=== PATIENT | female | born 1950 | race Caucasian/White ===

== ENCOUNTER 2020-07-20 01:29 | Outpatient (CLI) | payer MEDICARE, SELFPAY ==
[2020-07-20 18:59] LABS: SARS-CoV-2 RNA PCR Negative
== END 2020-07-20 01:30 | disposition home or self-care (01) ==
LOC: ANHCOVIDDT 01:29
PROVIDERS: PCP Family Medicine; Visit Provider Obstetrics & Gynecology
DX: Z01.812 Encounter for preprocedural laboratory examination (principal); Z20.828 Contact with and (suspected) exposure to other viral communicable diseases
CPT/HCPCS: 87635; C9803; U0003

== ENCOUNTER 2020-07-20 07:37 | Outpatient (CLI) | payer MEDICARE, SELFPAY ==
[2020-07-20 08:11] LABS: Hematocrit 41.1 % (37.0-47.0); Hemoglobin 13.7 g/dL (12.0-15.0)
--- NOTE | 2020-07-20 08:19 | ECG_ITS ---
Measurements Intervals [place] Rate: 85 P: 46 ND: 158 QRS: -3 QRSD: 99 T: 31 QT: 378 QTc: 451 Interpretive Statements SINUS RHYTHM CANNOT RULE OUT SEPTAL INFARCT, AGE INDETERMINATE ABNORMAL ECG Electronically Signed On 07-20-2020 10:17:05 RAILROAD SIGNAL TECHNICIAN by Jeff Krishnamurthy D.O.
== END 2020-07-20 07:38 | disposition home or self-care (01) ==
PROVIDERS: PCP Family Medicine; Referring Provider Anesthesiology; Visit Provider Obstetrics & Gynecology
DX: N95.0 Postmenopausal bleeding (principal); I10 Essential (primary) hypertension
CPT/HCPCS: 36415; 85014; 85018; 87635; 93005; C9803; U0003

== ENCOUNTER 2020-07-23 02:03 | Day surgery (SDC) | payer MEDICARE, SELFPAY ==
[2020-07-19 15:13] VITALS: BMI 44.1
--- NOTE | 2020-07-22 10:00 | PM.IMHP ---
H&P: HPI History of Present Illness Date/Time: 07/22/20 10:00 Chief Complaint: post lamin bleed Narrative: Suzanne Ng is a 69 year old female who is admitted for hysteroscopy dilatation curettage secondary to postmenopausal 9. She noticed a sudden gush few days prior and then it slowed risks and benefits of the procedure reviewed. Review of Systems Review of Systems: All systems reviewed & are unremarkable except as noted in HPI and below PMFSH Past Medical History Medical History GERD (gastroesophageal reflux disease) HTN (hypertension) Hyperlipemia Morbid obesity Surgical History Surgical History History of appendectomy History of breast biopsy History of cholecystectomy History of dilatation and curettage History of ear surgery History of hernia repair History of lithotripsy Family History Family History Mother Diabetes mellitus Hypertension Family history of cardiovascular disease Cerebrovascular accident Family history of cardiac disorder Family history of diabetes mellitus in first degree relative Sibling Diabetes mellitus Family history of malignant neoplasm of uterus Family history of malignant neoplasm Family history of diabetes mellitus in first degree relative Father Family history of lung cancer Other Family history of kidney disease Social History Social History Smoking status: Never smoker Second hand tobacco smoke exposure: No Alcohol intake: never Substance use: never Substance use type: does not use Gender identity (if verbalized by the patient): Female Spiritual care concerns: No Agree to blood products: Yes Meds Home Medications and Allergies Home Medications Medication Instructions Recorded Confirmed Type indapamide 2.5 mg tablet 2.5 mg PO DAILY #90 tablet 06/27/19 07/19/20 Rx lisinopril 40 mg tablet 40 mg PO DAILY #90 tablet 06/27/19 07/19/20 Rx montelukast 10 mg tablet 10 mg PO DAILY PRN #90 tablet 07/03/20 07/19/20 Rx aspirin [Aspirin Low Dose] 81 mg PO DAILY 07/19/20 07/19/20 History atorvastatin 5 mg PO QAM 07/19/20 07/19/20 History cinnamon bark [Cinnamon] 2,000 mg PO DAILY 07/19/20 07/19/20 History coenzyme Q10 [CoQ-10] 100 mg PO DAILY 07/19/20 07/19/20 History diclofenac sodium 75 mg PO DAILY 07/19/20 07/19/20 History geriatric multivitamin-min 1 tablet QAM 07/19/20 07/19/20 History [One-A-Day 50 Plus] loratadine [Claritin] 10 mg PO DAILY 07/19/20 07/19/20 History Allergies Allergy/AdvReac Type Severity Reaction Status Date / Time adhesive Allergy Severe LOCAL Verified 07/19/20 15:07 REACTION UNDER TAPE, SKIN BREAKDOWN ???SINUS MEDICATION Allergy Mild HEART Uncoded 07/19/20 15:07 IRREG FEELING Exam Const: General: no acute distress Eyes: General: appearance normal, both eyes and all related structures Neck: Neck: supple and no JVD Thyroid: thyroid normal Resp: Effort & Inspection: normal respiratory effort Auscultation: clear to auscultation bilaterally Cardio: Rate: regular rate Rhythm: regular rhythm GI: Inspection: non-distended GI Palp: Yes Soft to palpation, No Tenderness to palpation present (GI) and No Guarding due to palpation present (GI) Auscultation: normal bowel sounds : General: Yes bladder normal to palpation External Female Exam: normal external appearance Speculum Exam - Vagina: normal appearance of the vagina and vaginal bleeding Speculum Exam - Cervix: normal appearance of the cervix Bimanual exam- vagina & uterus: enlarged ( Difficult to palpate secondary to large pannus) Skin: General skin exam: no rashes or lesions noted Extrem: General: normal to inspection and no edema Psych: Mental Status: mental status grossly normal Affec
--- NOTE | 2020-07-23 07:09 | WPDHPUPDATE1 ---
History and Physical Update Update Date/Time: 07/23/20 07:09 History and Physical has been reviewed, including an updated exam of the patient. There are NO changes in the patient's condition. Risks, benefits, and alternatives have been discussed and questions answered. Patient agrees to proceed with procedure.
[2020-07-23 11:10] VITALS: BP 148/81; PULSE 108; RESP 14; TEMP 36.8; O2SAT 100
[2020-07-23] MEDS: ACETAMINOPHEN 500 MG TABLET 1000 MG PO (11:26)
[2020-07-23] MEDS: LACTATED RINGERS 1,000 ML 30 ML IV CONT (11:38)
--- NOTE | 2020-07-23 11:48 | WPDANESEPPF ---
Anes - Initial Pre Proc Eval Procedure: Operation Date: 07/23/20 13:00 Proposed Procedures p Hysteroscopy, Dilation and Curettage - Jostin Pichardo MD Date/Time: 07/23/20 11:48 Surgeon: Jostin Pichardo MD Pre Op Diagnosis: post menopausal bleeding Patient Data Age: 69 Gender: F Height: 1.65 m Weight: 118.3 kg Last Vital Signs Temp 36.8 C 07/23/20 11:10 Pulse 108 H 07/23/20 11:10 Resp 14 07/23/20 11:10 BP 148/81 H 07/23/20 11:10 Pulse Ox 100 07/23/20 11:10 Allergies Allergy/AdvReac Type Severity Reaction Status Date / Time adhesive Allergy Severe LOCAL Verified 07/23/20 11:15 REACTION UNDER TAPE, SKIN BREAKDOWN Home Medications Medication Instructions Recorded Confirmed Type indapamide 2.5 mg tablet 2.5 mg PO DAILY #90 tablet 06/27/19 07/23/20 Rx lisinopril 40 mg tablet 40 mg PO DAILY #90 tablet 06/27/19 07/23/20 Rx montelukast 10 mg tablet 10 mg PO DAILY PRN #90 tablet 07/03/20 07/23/20 Rx aspirin [Aspirin Low Dose] 81 mg PO DAILY 07/19/20 07/23/20 History atorvastatin 5 mg PO QAM 07/19/20 07/23/20 History cinnamon bark [Cinnamon] 2,000 mg PO DAILY 07/19/20 07/23/20 History coenzyme Q10 [CoQ-10] 100 mg PO DAILY 07/19/20 07/23/20 History diclofenac sodium 75 mg PO DAILY 07/19/20 07/23/20 History geriatric multivitamin-min 1 tablet QAM 07/19/20 07/23/20 History [One-A-Day 50 Plus] loratadine [Claritin] 10 mg PO DAILY 07/19/20 07/23/20 History hydrocodone-acetaminophen [[place]] 1 tablet PO Q4H PRN #14 tablet 07/23/20 Rx ECG: Date of Service: 07/20/20 Procedure(s): CA 12 lead EKG Accession Number(s): [id number] cc: ~ Measurements Intervals [place] Rate: 85 P: 46 HI: 158 QRS: -3 QRSD: 99 T: 31 QT: 378 QTc: 451 Interpretive Statements SINUS RHYTHM CANNOT RULE OUT SEPTAL INFARCT, AGE INDETERMINATE ABNORMAL ECG Electronically Signed On 07-20-2020 10:17:05 SEO ASSOCIATE by Jeff Krishnamurthy D.O. Dictated By: Jeff Krishnamurthy DO 07/20/20 0824 Patient hx anesthesia problems: none Family hx anesthesia problems: none PMFSH Past Medical History Medical History GERD (gastroesophageal reflux disease) HTN (hypertension) Hyperlipemia Morbid obesity Surgical History Surgical History History of appendectomy History of breast biopsy History of cholecystectomy History of dilatation and curettage History of ear surgery History of hernia repair History of lithotripsy Family History Family History Mother Diabetes mellitus Hypertension Family history of cardiovascular disease Cerebrovascular accident Family history of cardiac disorder Family history of diabetes mellitus in first degree relative Sibling Diabetes mellitus Family history of malignant neoplasm of uterus Family history of malignant neoplasm Family history of diabetes mellitus in first degree relative Father Family history of lung cancer Other Family history of kidney disease Social History Social History Smoking status: Never smoker Second hand tobacco smoke exposure: No Alcohol intake: never Substance use: never Substance use type: does not use Living arrangements: with family Gender identity (if verbalized by the patient): Female Spiritual care concerns: No Agree to blood products: Yes Anes - Eval Final PreProcedure Day of Procedure 07/23/20 11:48 Patient weight: obese Heart: regular rate and rhythm Lungs: clear to auscultation and shmuel
--- NOTE | 2020-07-23 13:25 | PM.PROC ---
Procedure Note - Detailed Date of procedure: 07/23/20 Pre-op diagnosis: post menopausal bleeding Surgeon: Jostin Pichardo MD Postop diagnosis: Postmenopausal bleeding Procedure: Hysteroscopy/dilatation and curettage Anesthesia: IV sedation local Complications: None EBL: 5cc Findings: Uterus sounded to 10cm. Clots were seen inside the uterus but no definitive pathology seen. Each fallopian tube os could be seen. Description of procedure: The patient was prepped and draped in the normal sterile fashion placed in the dorsal lithotomy position. Under excellent IV sedation weighted speculum was placed in posterior fornix of vagina. Anterior lip of cervix grasped with a single-tooth tenaculum. 2.5cc of 1% xylocaine anesthesia placed at 2, 4, 8, 10:00 a.m. of the cervix. Uterus sounded to 10cm. Serial dilatation with fragmented dilators performed. This was followed by passage of the 5mm visualizing hysteroscope using normal saline as visualizing medium. Clots and blood were seen in the uterus but no evidence of abnormality. The uterus was scraped over the entire 360? until a good grating sound was heard. The hysteroscope was reinserted and benign appearance of the endometrium was looked at again. Blood loss was estimated at 5cc. All sponge, needle, instrument counts were correct. There were no immediate complications
[2020-07-23 13:28] VITALS: BP 98/60; PULSE 83; RESP 14; O2SAT 96
[2020-07-23 13:55] VITALS: BP 99/52; PULSE 81; RESP 14
[2020-07-23 14:25] VITALS: BP 116/63; PULSE 79; RESP 14
== END 2020-07-23 14:55 | disposition home or self-care (01) ==
PROVIDERS: PCP Family Medicine; Visit Provider Obstetrics & Gynecology
PROC: 0U5B8ZZ Destruction of Endometrium, Via Natural or Artificial Opening Endoscopic (ICD-10-PCS; CPT 58563; principal; 2020-07-23 13:00)
DX: N95.0 Postmenopausal bleeding (principal); N85.8 Other specified noninflammatory disorders of uterus; I10 Essential (primary) hypertension; E78.5 Hyperlipidemia, unspecified; K21.9 Gastro-esophageal reflux disease without esophagitis; E66.01 Morbid (severe) obesity due to excess calories; Z68.41 Body mass index [BMI] 40.0-44.9, adult
CPT/HCPCS: 58558; 88305; A9270; J1100; J1885; J2250; J2405; J2704; J3010; J7030; J7120

== ENCOUNTER 2020-08-08 09:26 | Outpatient (CLI) | payer MEDICARE, SELFPAY ==
[2020-08-08 09:59] LABS: Basophils Percent Auto 0.4 % (0.2-1.2); Eosinophils Absolute Auto 0.3 K/mm3 (0-0.3); Eosinophils Percent Auto 2.7 % (0-4.4); Hematocrit 40.4 % (37.0-47.0); Hemoglobin 13.6 g/dL (12.0-15.0); Immature Granulocyte Absolute 0.05 K/mm3 (0.00-0.031); Immature Granulocyte Percent A 0.5 % (0-0.5); Lymphocytes Absolute Auto 2.56 K/mm3 (0.9-3.2); Lymphocytes Percent Auto 24.1 % (18.3-44.2); Mean Corpuscular HGB Conc 33.7 g/dl (32-36); Mean Corpuscular Hemoglobin 31.9 pg (26-34); Mean Corpuscular Volume 94.6 fl (80-100); Mean Platelet Volume 9.1 fl (7.4-10.4); Monocytes Absolute Auto 0.7 K/mm3 (0.1-0.6); Monocytes Percent Auto 6.2 % (2.6-8.5); Neutrophils Percent Auto 66.1 % (45.5-73.1); Platelet Count Result 385 k/mm3 (150-375); Red Blood Count 4.27 M/mm3 (4.2-5.4); Red Cell Distribution Width 12.7 % (11.5-14.5); White Blood Count 10.6 K/mm3 (4.5-10.0)
[2020-08-08 10:12] LABS: Anion Gap 6 mmol/L (8-16); Blood Urea Nitrogen 18 mg/dL (7-17); Calcium 9.3 mg/dL (8.4-10.2); Carbon Dioxide 32 mmol/L (22-30); Chloride 101 mmol/L (98-107); Estimated Glomerular Filt Rate > 60; Glucose 123 mg/dL (65-105); Potassium 3.5 mmol/L (3.4-5.0); Sodium 139 mmol/L (137-145)
== END 2020-08-08 09:27 | disposition home or self-care (01) ==
PROVIDERS: Anesthesiology; PCP Physician Assistant; Visit Provider Obstetrics & Gynecology
DX: N95.0 Postmenopausal bleeding (principal); Z79.899 Other long term (current) drug therapy
CPT/HCPCS: 36415; 80048; 85025; 86850; 86900; 86901

== ENCOUNTER 2020-08-13 03:12 | Outpatient (CLI) | payer MEDICARE, SELFPAY ==
[2020-08-13 19:22] LABS: SARS-CoV-2 RNA PCR Negative
== END 2020-08-13 03:13 | disposition home or self-care (01) ==
LOC: ANHCOVIDDT 03:13
PROVIDERS: PCP Physician Assistant; Visit Provider Obstetrics & Gynecology
DX: Z01.812 Encounter for preprocedural laboratory examination (principal); Z20.822 Contact with and (suspected) exposure to COVID-19
CPT/HCPCS: C9803; U0003; U0005

== ENCOUNTER 2020-08-16 02:08 | Day surgery (SDC) | payer MEDICARE, SELFPAY ==
[2020-08-07 11:46] VITALS: BMI 44.0
--- NOTE | 2020-08-14 08:04 | PM.IMHP ---
H&P: HPI History of Present Illness Date/Time: 08/14/20 08:04 Chief Complaint: pmb Narrative: Suzanne Ng is a 69 year old female Is admitted for robotic total vaginal hysterectomy and bilateral salpingo-oophorectomy secondary to postmenopausal bleeding and enlarged uterus. She underwent D&C which showed benign findings. Order with her continued bleeding she opts for hysterectomy. Risks Review of Systems Review of Systems: All systems reviewed & are unremarkable except as noted in HPI and below PMFSH Past Medical History Medical History GERD (gastroesophageal reflux disease) HTN (hypertension) Hyperlipemia Morbid obesity Surgical History Surgical History History of appendectomy History of breast biopsy History of cholecystectomy History of dilatation and curettage History of ear surgery History of hernia repair History of lithotripsy Family History Family History Mother Diabetes mellitus Hypertension Family history of cardiovascular disease Cerebrovascular accident Family history of cardiac disorder Family history of diabetes mellitus in first degree relative Sibling Diabetes mellitus Family history of malignant neoplasm of uterus Family history of malignant neoplasm Family history of diabetes mellitus in first degree relative Father Family history of lung cancer Other Family history of kidney disease Social History Social History Smoking status: Never smoker Second hand tobacco smoke exposure: No Alcohol intake: never Substance use: never Substance use type: does not use Additional living arrangements comments: Gender identity (if verbalized by the patient): Female Spiritual care concerns: No Agree to blood products: Yes Meds Home Medications and Allergies Home Medications Medication Instructions Recorded Confirmed Type indapamide 2.5 mg tablet 2.5 mg PO DAILY #90 tablet 06/27/19 08/07/20 Rx lisinopril 40 mg tablet 40 mg PO DAILY #90 tablet 06/27/19 08/07/20 Rx montelukast 10 mg tablet 10 mg PO DAILY PRN #90 tablet 07/03/20 08/07/20 Rx aspirin [Aspirin Low Dose] 81 mg PO DAILY 07/19/20 08/07/20 History atorvastatin 5 mg PO QAM 07/19/20 08/07/20 History cinnamon bark [Cinnamon] 2,000 mg PO DAILY 07/19/20 08/07/20 History coenzyme Q10 [CoQ-10] 200 mg PO DAILY 07/19/20 08/07/20 History diclofenac sodium 75 mg PO DAILY 07/19/20 08/07/20 History geriatric multivitamin-min 1 tablet PO QAM 07/19/20 08/07/20 History [One-A-Day 50 Plus] loratadine [Claritin] 10 mg PO DAILY 07/19/20 08/07/20 History hydrocodone-acetaminophen [[place]] 1 tablet PO Q4H PRN #14 tablet 07/23/20 08/07/20 Rx Allergies Allergy/AdvReac Type Severity Reaction Status Date / Time adhesive AdvReac Severe LOCAL Verified 08/07/20 11:41 REACTION UNDER TAPE, SKIN BREAKDOWN Exam Const: General: no acute distress Eyes: General: appearance normal, both eyes and all related structures Neck: Neck: supple and no JVD Thyroid: thyroid normal Resp: Effort & Inspection: normal respiratory effort Auscultation: clear to auscultation bilaterally Cardio: Rate: regular rate Rhythm: regular rhythm GI: Inspection: non-distended GI Palp: Yes Soft to palpation, No Tenderness to palpation present (GI) and No Guarding due to palpation present (GI) Auscultation: normal bowel sounds : Speculum Exam - Vagina: normal appearance of the vagina Speculum Exam - Cervix: normal appearance of the cervix Bimanual exam- vagina & uterus: enlarged Skin: General skin exam: no rashes or lesions noted Extrem: General: normal to inspection and no edema Psych: Mental Status: mental status grossly normal Affect: normal affect Assessment and Plan Additional Pl
[2020-08-16] VITALS (16 sets, daily range): BP systolic 87–130; BP diastolic 40–68; PULSE 54–96; RESP 12–20; TEMP 36.3–37.4; O2SAT 94–100
[2020-08-16] MEDS: LACTATED RINGERS 1,000 ML 30 ML IV CONT ×2 (06:40→08:46)
--- NOTE | 2020-08-16 06:44 | WPDHPUPDATE1 ---
History and Physical Update Update Date/Time: 08/16/20 06:44 History and Physical has been reviewed, including an updated exam of the patient. There are NO changes in the patient's condition. Risks, benefits, and alternatives have been discussed and questions answered. Patient agrees to proceed with procedure.
--- NOTE | 2020-08-16 06:51 | WPDANESEPPF ---
Anes - Initial Pre Proc Eval Procedure: Operation Date: 08/16/20 07:30 Proposed Procedures p Robotic Assisted Total Vaginal Hysterectomy With Bilateral Salpingo-Oophorectomy - Jostin Pichardo MD Date/Time: 08/16/20 06:51 Surgeon: Jostin Pichardo MD Pre Op Diagnosis: Post Menopausal Bleeding, Patient Data Age: 69 Gender: F Height: 5 ft 5 in Weight: 120 kg Allergies Allergy/AdvReac Type Severity Reaction Status Date / Time adhesive AdvReac Severe LOCAL Verified 08/07/20 11:41 REACTION UNDER TAPE, SKIN BREAKDOWN Home Medications Medication Instructions Recorded Confirmed Type indapamide 2.5 mg tablet 2.5 mg PO DAILY #90 tablet 06/27/19 08/07/20 Rx lisinopril 40 mg tablet 40 mg PO DAILY #90 tablet 06/27/19 08/07/20 Rx montelukast 10 mg tablet 10 mg PO DAILY PRN #90 tablet 07/03/20 08/07/20 Rx aspirin [Aspirin Low Dose] 81 mg PO DAILY 07/19/20 08/07/20 History atorvastatin 5 mg PO QAM 07/19/20 08/07/20 History cinnamon bark [Cinnamon] 2,000 mg PO DAILY 07/19/20 08/07/20 History coenzyme Q10 [CoQ-10] 200 mg PO DAILY 07/19/20 08/07/20 History diclofenac sodium 75 mg PO DAILY 07/19/20 08/07/20 History geriatric multivitamin-min 1 tablet PO QAM 07/19/20 08/07/20 History [One-A-Day 50 Plus] loratadine [Claritin] 10 mg PO DAILY 07/19/20 08/07/20 History hydrocodone-acetaminophen [[place]] 1 tablet PO Q4H PRN #14 tablet 07/23/20 08/07/20 Rx hydrocodone-acetaminophen [[place]] 1 tablet PO Q4H PRN #30 tablet 08/16/20 Rx Patient hx anesthesia problems: none Family hx anesthesia problems: none PMFSH Past Medical History Medical History GERD (gastroesophageal reflux disease) HTN (hypertension) Hyperlipemia Morbid obesity Surgical History Surgical History History of appendectomy History of breast biopsy History of cholecystectomy History of dilatation and curettage History of ear surgery History of hernia repair History of lithotripsy Family History Family History Mother Diabetes mellitus Hypertension Family history of cardiovascular disease Cerebrovascular accident Family history of cardiac disorder Family history of diabetes mellitus in first degree relative Sibling Diabetes mellitus Family history of malignant neoplasm of uterus Family history of malignant neoplasm Family history of diabetes mellitus in first degree relative Father Family history of lung cancer Other Family history of kidney disease Social History Social History Smoking status: Never smoker Second hand tobacco smoke exposure: No Alcohol intake: never Substance use: never Substance use type: does not use Living arrangements: with family Additional living arrangements comments: Gender identity (if verbalized by the patient): Female Spiritual care concerns: No Agree to blood products: Yes Anes - Eval Final PreProcedure Day of Procedure 08/16/20 06:51 Patient weight: morbidly obese Heart: regular rate and rhythm Lungs: clear to auscultation Airway: Mallampati scale class II Neurological: alert and oriented Last oral intake: >/= 8 hours ASA classification: III Emergent: no Anesthetic plan: proceed Anesthesia type and monitoring: general ETT and standard monitoring Informed Consent: The patient's anesthetic plan and its attendant risks and benefits were discussed with the patient/family/POA. Questions were solicited and answers provided to the satisfaction of the patient/family/POA.
[2020-08-16] MEDS: KETOROLAC 15 MG/ML VIAL (*BKC) IV PUSH (06:52)
[2020-08-16] MEDS: ACETAMINOPHEN 500 MG TABLET 1000 MG PO (06:52)
[2020-08-16] MEDS: ceFAZolin 3 GM/D5W 100 ML 100 ML IVPB (07:24)
--- NOTE | 2020-08-16 08:37 | PM.PROC ---
Procedure Note - Detailed Date of procedure: 08/16/20 Pre-op diagnosis: Post Menopausal Bleeding, Surgeon: Jostin Pichardo MD Postop diagnosis: Postmenopausal bleeding Procedure: Robotic total vaginal hysterectomy and bilateral salpingo-oophorectomy Anesthesia: General endotracheal EBL: 20cc Complications: None Findings: Enlarged uterus tubes status post tubal ligation. Normal-appearing ovaries bilaterally mesh and the right lower quadrant. Mild adhesions Description of procedure: The patient was prepped and draped in the normal sterile fashion placed in the dorsal lithotomy position. Under excellent general endotracheal anesthesia weighted speculum placed in posterior fornix of vagina. Anterior lip of the cervix was grasped with a single-tooth tenaculum and the uterus sounded to 10cm. Serial dilatation with fragmented dilators performed followed by passage of 8. PARTH and the 3. Cold cup. Next the 16 [place] catheter was placed to drain the bladder of clear urine. The weighted speculum was removed. The gloves were changed. A supraumbilical incision was made and the Veress needle passed in the abdomen. The abdomen was filled with CO2 gas [id number]. The 8mm trocar advanced in the abdomen. The downside visualized and no injury seen. The patient placed in Trendelenburg. Right and left lateral quadrant incisions made in the 8mm trocars advanced under direct visualization assuring no injury. A right upper quadrant incision made. The 10mm trocar advanced in the abdomen under direct visualization assuring no injury. The above findings were found and he adhesions were seen. Attention was turned to the appliance counselor. The adhesions on the left and right were sharply dissected so the uterus ovaries and tubes could be visualized. The left round ligament was grasped, burned, cut. Anteriorly a bladder flap was formed and the bladder resected caudally from the uterus to the opposite round ligament which was clamped, burned, cut. Next the left infundibulopelvic structure was skeletonized. This was clamped, burned, cut. This was brought to the level of the previously cut round ligament. In like fashion the right ovary and tube were skeletonized the infundibulopelvic structures clamped, burned, cut and brought to the level of previously cut round ligament. The left cardinal and broad ligaments were then serially skeletonized clamping burning and cutting until the uterine vessels on the left could be seen. These were noted to be large and tortuous and were individually clamped, burned, cut. In like fashion the cardinal and broad ligaments on the right were serially skeletonized. These were clamped, burned, cut and brought to the level of the uterine vessels. These large tortuous vessels were then individually skeletonized. They were clamped, burned, cut. Blanching the usual is seen in a colpotomy incision was made. Cervix uterus ovaries and tubes removed through the vagina. The vagina was then closed with continuous running 0V lock from lateral edge to lateral edge back to the midline. Irrigation undertaken and hemostasis assured. Hematuria was placed on the vaginal cuff. The gas was removed from the abdomen after the robot had been undocked. The trocars removed. The incisions were closed with 4 O Monocryl and glue. The patient was awakened. All sponge, needle, instrument counts were correct. There were no immediate complications noted.
[2020-08-16] MEDS: fentaNYL CITRATE INJ (*CRX) 100 MCG/2 ML VIAL 25 MCG IV PUSH ×4 (09:15→09:42)
[2020-08-16] MEDS: DEXTROSE 5%/LACTATED RINGERS 1,000 ML 125 ML IV CONT (10:40)
--- NOTE | 2020-08-16 11:05 | ADMGEN ---
This patient, Suzanne Ng, was admitted to OB 2nd Floor Room 289-00. Patient/family oriented to hospital policies and general routines including ID bracelet, bed and alarms, visiting hours, pain management, procedures, bathroom and other care routines, personal items, smoking policy, room service/diet, and visiting hours. Information on how to activate the Rapid Response Team has been discussed. Patient/Family are encouraged to report perceived risks to care and to ask questions if they do not understand what they are told or what they should do.
[2020-08-16] MEDS: HYDROcodone/acetaminophen (*CRX) 5-325 MG TABLET 1 TAB PO (12:22)
[2020-08-16] MEDS: IBUPROFEN 600 MG TABLET PO ×2 (12:23→19:45)
[2020-08-16] MEDS: ACETAMINOPHEN 325 MG TABLET PO (19:45)
[2020-08-17 05:11] VITALS: BP 88/40; PULSE 75; RESP 18; TEMP 37.1
[2020-08-17 05:51] LABS: Basophils Percent Auto 0.1 % (0.2-1.2); Eosinophils Percent Auto 0.1 % (0-4.4); Hematocrit 33.2 % (37.0-47.0); Immature Granulocyte Absolute 0.07 K/mm3 (0.00-0.031); Immature Granulocyte Percent A 0.5 % (0-0.5); Lymphocytes Absolute Auto 2.36 K/mm3 (0.9-3.2); Lymphocytes Percent Auto 16.1 % (18.3-44.2); Mean Corpuscular HGB Conc 33.1 g/dl (32-36); Mean Corpuscular Hemoglobin 31.5 pg (26-34); Mean Corpuscular Volume 95.1 fl (80-100); Mean Platelet Volume 9.3 fl (7.4-10.4); Monocytes Absolute Auto 0.8 K/mm3 (0.1-0.6); Monocytes Percent Auto 5.7 % (2.6-8.5); Neutrophils Absolute Auto 11.3 K/mm3 (1.3-6.7); Neutrophils Percent Auto 77.5 % (45.5-73.1); Platelet Count Result 306 k/mm3 (150-375); Red Blood Count 3.49 M/mm3 (4.2-5.4); Red Cell Distribution Width 12.5 % (11.5-14.5); White Blood Count 14.6 K/mm3 (4.5-10.0)
[2020-08-17] MEDS: DOCUSATE SODIUM 100 MG CAPSULE PO (07:26)
[2020-08-17] MEDS: ENOXAPARIN 40 MG/0.4 ML SYRINGE SUB-Q (07:26)
[2020-08-17] MEDS: IBUPROFEN 600 MG TABLET PO (07:31)
[2020-08-17 07:34] VITALS: BP 136/59; PULSE 71; RESP 18; TEMP 36.7; O2SAT 96
--- NOTE | 2020-08-17 08:04 | PM.DS ---
DS: Admitting Diagnosis Admitting Diagnosis Admitting Diagnosis: postmenopausal bleeding enlarged uterus DS: Summary Hospital Course Hospital Course: Suzanne Ng was admitted after robotic assisted total laparoscopic hysterectomy and bilateral salpingo-oophorectomy for postmenopausal bleeding and enlarged uterus. The above procedure was performed with no complications. She is doing well post op. She states her pain is well controlled with PO medications. She reports minimal bleeding. She is ambulating up to the chair. Her mendez catheter was removed. She is tolerating PO without N/V. She reports passing flatus. Status at Discharge Overall status at discharge: patient is progressing back to baseline Time Spent with Patient Time attestation: Total time spent providing and/or coordinating discharge services: Time spent: Less than 30 minutes Exam Const: General: comfortable and no acute distress Limitations: no limitations Resp: Effort & Inspection: normal respiratory effort Auscultation: clear to auscultation bilaterally Cardio: Rate: regular rate Rhythm: regular rhythm GI: Inspection: non-distended GI Palp: Yes Soft to palpation, Yes Tenderness to palpation present (GI) (milder tenderness to deep palpation) and No Guarding due to palpation present (GI) Auscultation: normal bowel sounds Other: incisions C/D/I covered with dermabond Urinary Catheter: Urinary Catheter: urine clear Skin: General skin exam: normal color Extrem: General: normal to inspection Psych: Mental Status: mental status grossly normal Affect: normal affect DS: Data Data Completed and Pending Pending studies at discharge: Pending at discharge 08/16/20 08:04 Surgical [PTH] Routine Labs on day of discharge: Labs from last 24 hours 08/17/20 05:18 WBC 14.6 H RBC 3.49 L Hgb 11.0 L Hct 33.2 L MCV 95.1 MCH 31.5 MCHC 33.1 RDW 12.5 Plt Count 306 MPV 9.3 Immature Gran % (Auto) 0.5 Neut % (Auto) 77.5 H Lymph % (Auto) 16.1 L Ida % (Auto) 5.7 Eos % (Auto) 0.1 Baso % (Auto) 0.1 L Lymph # (Auto) 2.36 Ida # (Auto) 0.8 H Eos # (Auto) 0.0 Baso # (Auto) 0.0 Abs Immat Gran (auto) 0.07 H Absolute Neuts (auto) 11.3 H Absolute Nucleated RBC 0.0 Nucleated RBC % 0.0 Discharge Plan Discharge Patient Disposition: Home, Self-Care Patient Instructions: Laparoscopic Hysterectomy (DC) Stand Alone Forms: General Discharge Instructions Follow-up/Referrals: Jostin Pichardo MD [Physician] - Discharge Medications: New hydrocodone-acetaminophen [[place]] 5-325 mg tablet 1 tablet PO Q4H PRN (Reason: pain) Qty: 30 RF: 0 No Action aspirin [Aspirin Low Dose] 81 mg Tablet,Delayed Release (Dr/Ec) 81 mg PO DAILY RF: 0 loratadine [Claritin] 10 mg Tablet 10 mg PO DAILY RF: 0 coenzyme Q10 [CoQ-10] 100 mg Capsule 200 mg PO DAILY RF: 0 One-A-Day 50 Plus Tablet 1 tablet PO QAM RF: 0 cinnamon bark [Cinnamon] 500 mg Capsule 2,000 mg PO DAILY RF: 0 atorvastatin 10 mg tablet 5 mg PO QAM RF: 0 diclofenac sodium 75 mg Tablet,Delayed Release (Dr/Ec) 75 mg PO DAILY RF: 0 hydrocodone-acetaminophen [[place]] 5-325 mg tablet 1 tablet PO Q4H PRN (Reason: pain) Qty: 14 RF: 0 lisinopril 40 mg tablet 40 mg PO DAILY Qty: 90 RF: 1 indapamide 2.5 mg tablet 2.5 mg PO DAILY Qty: 90 RF: 1 montelukast 10 mg tablet 10 mg PO DAILY PRN (Reason: seasonal ) Qty: 90 RF: 3
--- NOTE | 2020-08-17 08:40 | P.PNAN_ITS ---
Anes - Prog Note Post-Op Date/Time: 08/17/20 08:40 Cardiovascular status: normal Respiratory status: normal Airway patency: baseline Mental status: baseline Post-Op hydration status: normal Vital Signs: Last Vital Signs Temp 36.7 C 08/17/20 07:34 Pulse 71 08/17/20 07:34 Resp 18 08/17/20 07:34 BP 136/59 L 08/17/20 07:34 Pulse Ox 96 08/17/20 07:34 Pain Score (VAS): 3 I/O: Intake & Output 08/16/20 08/17/20 08/17/20 23:59 07:59 15:59 Intake Total 1190 2900 Output Total 225 2050 Balance 965 850 Laboratory Tests 08/17/20 05:18 08/17/20 05:18 WBC 14.6 H RBC 3.49 L Hgb 11.0 L Hct 33.2 L MCV 95.1 MCH 31.5 MCHC 33.1 RDW 12.5 Plt Count 306 MPV 9.3 Immature Gran % (Auto) 0.5 Neut % (Auto) 77.5 H Lymph % (Auto) 16.1 L Crockett % (Auto) 5.7 Eos % (Auto) 0.1 Baso % (Auto) 0.1 L Lymph # (Auto) 2.36 Crockett # (Auto) 0.8 H Eos # (Auto) 0.0 Baso # (Auto) 0.0 Abs Immat Gran (auto) 0.07 H Absolute Neuts (auto) 11.3 H Absolute Nucleated RBC 0.0 Nucleated RBC % 0.0 Post-procedural complaints: none Patient Feedback: Patient satisfied with anesthetic care.
== END 2020-08-17 09:50 | disposition home or self-care (01) ==
LOC: ANHSURGERY 06:00 → ANHOB2 10:16
PROVIDERS: PCP Physician Assistant; Visit Provider Obstetrics & Gynecology
PROC: (CPT 58552; principal; 2020-08-16 07:30)
DX: N72 Inflammatory disease of cervix uteri (principal); N88.8 Other specified noninflammatory disorders of cervix uteri; N80.0 Endometriosis of uterus; N95.0 Postmenopausal bleeding; K21.9 Gastro-esophageal reflux disease without esophagitis; I10 Essential (primary) hypertension; E78.5 Hyperlipidemia, unspecified; E66.01 Morbid (severe) obesity due to excess calories; Z68.41 Body mass index [BMI] 40.0-44.9, adult; Z79.82 Long term (current) use of aspirin; D25.1 Intramural leiomyoma of uterus; N73.6 Female pelvic peritoneal adhesions (postinfective)
CPT/HCPCS: 58552; S2900; 36415; 85025; 88307; 99199; A9270; C9803; J0690; J1100; J1170; J1650; J1885; J2250; J2405; J2704; J2710; J3010; J7030; J7120; J7121; U0003; U0005

== ENCOUNTER 2020-09-26 14:39 | Outpatient (CLI) | payer MEDICARE, SELFPAY ==
--- NOTE | ~2020-09-26 | MM_ITS ---
EXAMINATION: MM screening [facility] BI w makenna HISTORY: Screening mammogram TECHNIQUE: Craniocaudal and mediolateral oblique 3-D tomosynthesis images were obtained and synthetic 2-D images were generated. CAD analysis was submitted and interpreted. COMPARISON: 08/18/2019, 08/01/2018, 07/29/2017 bilateral digital screening mammogram examinations BREAST PARENCHYMAL COMPOSITION: There are scattered areas of fibroglandular density. FINDINGS: Occasional scattered bilateral benign calcifications. Benign stable upper outer quadrant in tramammary lymph nodes on the right. There is no evidence of suspicious mass, calcification, or archi tectural distortion to suggest malignancy in either breast. There has been no suspicious interval caryl nge. IMPRESSION: 1. No mammographic evidence of malignancy. 2. Recommend routine screening mammography in one year. BI-RADS Category 2: Benign finding(s). Reviewed, dictated and finalized at location A. GER [employer]
== END 2020-09-26 14:40 | disposition home or self-care (01) ==
PROVIDERS: PCP Physician Assistant; Visit Provider Obstetrics & Gynecology
DX: Z12.31 Encounter for screening mammogram for malignant neoplasm of breast (principal)
CPT/HCPCS: 77063; 77067

== ENCOUNTER 2022-02-16 07:47 | Outpatient (CLI) | payer MEDICARE, SELFPAY ==
--- NOTE | ~2022-02-16 | DEXA_ITS ---
Bone Density Report Name: GERARDO REBOLLEDO Age: 71 Sex: Female Ethnicity: White Date of : 1950 Indication: postmenopausal; screening for osteoporosis; height loss; hysterectomy; Referring Provider: NICHOLAS RAMON Study: Bone densitometry was performed. Exam Date: February 16, 2022 Accession number: [id number] Bone Density: Region BMD T-score Z-score Classification AP Spine(L1-L4) 1.270 2.0 4.1 Normal Femoral Neck (Left) 0.821 -0.3 1.5 Normal Total Hip (Left) 0.990 0.4 1.9 Normal Femoral Neck (Right) 0.742 -1.0 0.8 Normal Total Hip (Right) 0.949 0.1 1.5 Normal Total Hip Mean 0.970 0.3 1.7 Normal World Health Organization criteria for BMD impression classify patients as: Normal (T-score at or above -1.0), Osteopenia (T-score between -1.0 and -2.5), or Osteoporosis (T-score at or below -2.5). 10-year Fracture Risk: FRAX not reported because: All T-scores for Spine Total, Hip Total, Femoral Neck at or above -1.0 Clinical Information Provided by Patient: Has used the following medications: Vitamin D, Calcium Has the following medical conditions: Hysterectomy Patient maximum height was 65 Menopause Age: 52 Drinks caffeinated beverages Onset of menses at age 11 Number of children 2 Impression: UNAPPROVED The patient has normal bone mass. Discussion: UNAPPROVED BONE DENSITY IS ABOVE THE MINIMUM DESIRABLE LEVEL AT ALL SKELETAL SITES TESTED. This patient?s bone mineral density is above the minimum desirable level (T-score -1.0 or better) at all sites measured. The patient should follow a healthful lifestyle (good nutrition with adequate calcium and vitamin D, and appropriate weight-bearing exercise). Follow-Up: UNAPPROVED Consider repeating this study in 5 years or sooner if there is some new clinical indication. Reported by: FERN on 02/16/2022 8:26:00 AM. Reviewed, dictated and finalized at location Meg LANCASTER
--- NOTE | ~2022-02-16 | MM_ITS ---
EXAMINATION: MM screening [facility] BI w makenna HISTORY: Screening TECHNIQUE: Craniocaudal and mediolateral oblique 3-D tomosynthesis images were obtained and synthetic 2-D images were generated. CAD analysis was submitted and interpreted. COMPARISON: Comparison to multiple prior studies sequentially, with oldest reviewed study dated 06/02. BREAST PARENCHYMAL COMPOSITION: There are scattered areas of fibroglandular density. FINDINGS: There is no evidence of suspicious mass, calcification, or architectural distortion to sugg est malignancy in either breast. There has been no suspicious interval change. IMPRESSION: 1. No mammographic evidence of malignancy. 2. Recommend routine screening mammography in one year. BI-RADS Category 1: Negative Reviewed, dictated and finalized at location A.
== END 2022-02-16 07:48 | disposition home or self-care (01) ==
PROVIDERS: PCP Family Medicine; Visit Provider Physician Assistant
DX: Z12.31 Encounter for screening mammogram for malignant neoplasm of breast (principal); Z78.0 Asymptomatic menopausal state
CPT/HCPCS: 77063; 77067; 77080

== ENCOUNTER 2022-03-19 08:26 | Outpatient (CLI) | payer MEDICARE, SELFPAY ==
--- NOTE | ~2022-03-19 | XR_ITS ---
EXAMINATION: XR hand BI arthritis min 3V DATE: 03/19/2022 09:25 INDICATION: Unspecified osteoarthritis, unspecified site. TECHNIQUE: 4 views of right hand and 4 views of left hand on a total of 7 radiographs were obtained. COMPARISON: None. FINDINGS: RIGHT HAND: Bone alignment is normal. No fracture. There is severe osteoarthritis of lunate-hamate mauricio int, first carpometacarpal joint, mild osteoarthritis of first and second metacarpophalangeal joints and many of the interphalangeal joints, and moderate osteoarthritis of first interphalangeal joint an d second and third distal interphalangeal joints. LEFT HAND: Bone alignment is normal. No fracture. There is severe osteoarthritis of first carpometaca rpal joint, mild osteoarthritis of second metacarpophalangeal joint and some of the interphalangeal j oints, moderate osteoarthritis of first interphalangeal joint, and severe osteoarthritis of fifth dis yudelka interphalangeal joint. There is degenerative cystic change in lunate, likely from mild lunate-cap itate osteoarthritis and ulnolunate impaction syndrome. IMPRESSION: 1. Polyarticular osteoarthritis. Reviewed, dictated and finalized at location A.
--- NOTE | ~2022-03-19 | XR_ITS ---
XR knee LT min 4V 03/19/2022 09:25 Indication: Left knee pain Procedure: 4 views left knee Comparison: 08/14/2014 Findings: There is moderate tricompartment osteoarthritis of the left knee. No fracture, subluxation or dislocation. No joint effusion. No foreign bodies. Impression: 1: Moderate tricompartment osteoarthritis of the left knee. Reviewed, dictated and finalized at location B. Impression: 1: Moderate tricompartment osteoarthritis of the left knee.
--- NOTE | ~2022-03-19 | XR_ITS ---
EXAMINATION: XR lumbar spine min 4V DATE: 03/19/2022 09:25 INDICATION: Other specified abnormal immunological findings, unspecified osteoarthritis TECHNIQUE: Anteroposterior, lateral, and bilateral oblique views of the lumbar spine, and cone-down l ateral view of the lumbosacral junction were obtained. COMPARISON: 10/22/2012 FINDINGS: There are 20 degrees of lumbar levoscoliosis. Bone alignment is normal. There is no fractur e. There is severe loss of intervertebral disc space height at L1-2, L2-3, L3-4, and L5-S1. The verte bral body heights are normal. There is severe facet osteoarthritis of the lower lumbar spine. Surgica l clips in the right upper quadrant are likely from prior cholecystectomy. There appear be changes of hernia repair in the right lower quadrant. IMPRESSION: 1. Lumbar levoscoliosis and severe spondylosis without acute findings. Reviewed, dictated and finalized at location A.
--- NOTE | ~2022-03-19 | XR_ITS ---
XR knee RT min 4V 03/19/2022 09:25 Indication: Right knee pain Procedure: 4 views right knee Comparison: No prior studies for comparison. Findings: There is severe tricompartment osteoarthritis of the right knee. No acute fracture or traum atic malalignment. Osteopenia. No significant joint effusion. Impression: 1: Severe osteoarthritis of the right knee. Reviewed, dictated and finalized at location B. Impression: 1: Severe osteoarthritis of the right knee.
[2022-03-19 09:38] LABS: Hemoglobin 13.6 g/dL (12.0-15.0); Mean Corpuscular HGB Conc 33.2 g/dl (32-36); Mean Corpuscular Hemoglobin 31.8 pg (26-34); Mean Corpuscular Volume 95.8 fl (80-100); Mean Platelet Volume 9.1 fl (7.4-10.4); Platelet Count Result 309 k/mm3 (150-375); Red Blood Count 4.28 M/mm3 (4.2-5.4); Red Cell Distribution Width 12.3 % (11.5-14.5); White Blood Count 7.6 K/mm3 (4.5-10.0)
[2022-03-19 09:56] LABS: Alanine Aminotransferase 19 U/L (6-35); Albumin Level 4.3 g/dL (3.5-5.1); Alkaline Phosphatase 76 U/L (38-126); Anion Gap 7 mmol/L (8-16); Aspartate Amino Transferase 26 U/L (14-36); Bilirubin,Total 0.6 mg/dL (0.2-1.3); Blood Urea Nitrogen 17 mg/dL (7-17); CRP 2.1 mg/dL (<1.0); Calcium 9.4 mg/dL (8.4-10.2); Carbon Dioxide 32 mmol/L (22-30); Chloride 98 mmol/L (98-107); Estimated Glomerular Filt Rate 55; Glucose 113 mg/dL (65-110); Sodium 137 mmol/L (137-145)
[2022-03-19 10:45] LABS: Appearance Urine Clear (Clear); Bilirubin Urine Negative (Negative); Blood Urine Negative (Negative); Color Urine Yellow (Yellow); Glucose Urine UA Negative (Negative); Ketones Urine Negative (Negative); Leukocyte Esterase Ur Trace LEU/UL (Negative); Nitrate Urine Negative (Negative); Protein Urine Negative (Negative); Specific Grav Ur 1.015 (1.001-1.035); Urobilinogen Urine 0.2 mg/dL (<2.0)
[2022-03-19 10:58] LABS: Add Urine Microscopic? NO
[2022-03-19 11:00] LABS: Erythrocyte Sedimentation Rate 19 mm/hr (0-20)
[2022-03-23 22:04] LABS: Anti Cyclic Citrullinated Pept <16 Units (<20)
[2022-03-24 10:54] LABS: SM Antibody <1.0; SM/RNP Antibody <1.0; SS-A <1.0; SS-B <1.0
== END 2022-03-19 08:27 | disposition home or self-care (01) ==
PROVIDERS: PCP Family Medicine; Visit Provider Internal Medicine
DX: R76.8 Other specified abnormal immunological findings in serum (principal); M17.0 Bilateral primary osteoarthritis of knee; Z51.81 Encounter for therapeutic drug level monitoring; Z71.89 Other specified counseling; Z79.899 Other long term (current) drug therapy; M19.90 Unspecified osteoarthritis, unspecified site; M18.0 Bilateral primary osteoarthritis of first carpometacarpal joints; M19.042 Primary osteoarthritis, left hand; M19.041 Primary osteoarthritis, right hand; M41.9 Scoliosis, unspecified; M47.817 Spondylosis without myelopathy or radiculopathy, lumbosacral region
CPT/HCPCS: 36415; 72110; 73130; 73564; 80053; 81003; 85027; 85652; 86140; 86200; 86225; 86235

== ENCOUNTER 2023-04-26 14:46 | Outpatient (CLI) | payer MEDICARE, SELFPAY ==
--- NOTE | ~2023-04-26 | MM_ITS ---
EXAMINATION: MM screening [facility] BI w makenna HISTORY: Screening mammogram TECHNIQUE: Craniocaudal and mediolateral oblique 3-D tomosynthesis images were obtained and synthetic 2-D images were generated. CAD analysis was submitted and interpreted. COMPARISON: 02/16/2022, 09/26/2020, 08/18/2019 bilateral screening mammogram examinations BREAST PARENCHYMAL COMPOSITION: There are scattered areas of fibroglandular density. FINDINGS: There is no evidence of suspicious mass, calcification, or architectural distortion to sugg est malignancy in either breast. There has been no suspicious interval change. IMPRESSION: 1. No mammographic evidence of malignancy. 2. Recommend routine screening mammography in one year. BI-RADS Category 1: Negative Reviewed, dictated and finalized at location A.
== END 2023-04-26 14:47 | disposition home or self-care (01) ==
LOC: ANHIMG 14:50
PROVIDERS: PCP Family Medicine; Visit Provider Family Medicine
DX: Z12.31 Encounter for screening mammogram for malignant neoplasm of breast (principal)
CPT/HCPCS: 77063; 77067

== ENCOUNTER 2024-02-28 07:54 | Emergency (ER) | payer MEDICARE, SELFPAY ==
[2024-02-28] VITALS (27 sets, daily range): BP systolic 136–183; BP diastolic 76–115; PULSE 89–118; RESP 14–23; TEMP 36.6–36.8; O2SAT 94–99
--- NOTE | ~2024-02-28 | CT_ITS ---
CTA chest PE protocol Ordering provider: Bam Agrawal MD History: 73 years Female with . recent surgery, chest pain sob . Comparison: None. Technique: CT angiogram chest was performed following timed intravenous injection of contrast. Thin s lice axial images and reformatted coronal images were obtained. Three dimensional reformatted images of the chest were also obtained using a [employer] workstation. . Automated exposure control and iterati ve reconstruction technique were employed. The dose-length product was 718.33 mGy-cm. 100 ML Omnipaqu e 350 was given IV. Findings: PULMONARY ARTERIES: Pulmonary embolism is seen in the left main pulmonary artery and in the branches of both arteries. Pulmonary hypertension is seen with the pulmonary artery measuring 3.5 cm. Right ve ntricular strain is noted. VISUALIZED THORACIC INLET: Normal. MEDIASTINUM: Aorta/coronary arteries: Mild atheromatous disease. Heart/other: The heart is not enlarged. Lymph nodes: No mediastinal or hilar adenopathy. LUNGS: Bilateral groundglass appearance is seen in the upper and lower lobes which may indicate atelectasis versus pneumonia versus edema. Follow-up and clinical correlation advised. No pulmonary nodules or ma sses. No effusions. No pneumothorax. VISUALIZED UPPER ABDOMEN: Status post cholecystectomy. Atrophic pancreas. Otherwise, the visualized u pper abdomen is normal. MUSCULOSKELETAL: Soft tissues: The superficial soft tissues are normal. Bones: Age appropriate degenerative changes of the spine. IMPRESSION: 1. Pulmonary embolism involving the left main pulmonary artery and both segmental pulmonary artery b ranches. Right ventricular strain is noted. 2. Bilateral groundglass appearance which may indicate edema versus infection versus atelectasis. Physician: Bam Agrawal MD Was notified with the result of the patient at 8:50 AM on February 28, 2024. Reviewed, dictated and finalized at location A. IMPRESSION: 1. Pulmonary embolism involving the left main pulmonary artery and both segmen yudelka pulmonary artery branches. Right ventricular strain is noted. 2. Bilateral groundglass appearance which may indicate edema versus infection versus atelectasis. Physician: Bam Agrawal MD Was notified with the result of the patient at 8:50 AM on February 28, 2024.
--- NOTE | ~2024-02-28 | XR_ITS ---
XR chest 2V Ordering provider: Bam Agrawal MD History: 73 years Female with . MIDLINE chest pain, SOB, KNEE SURG JANUARY 31, LE SWELLING . Comparison: October 28, 2005 FINDINGS: MEDIASTINUM: The cardiac silhouette is not enlarged. LUNGS: No infiltrates, effusions or pneumothorax. OTHER: No free air under the diaphragm. Degenerative changes of the spine with S-shaped scoliosis. IMPRESSION: No acute cardiopulmonary pathology. Reviewed, dictated and finalized at location A.
--- NOTE | 2024-02-28 08:06 | ECG_ITS ---
Test Date: 2024-02-28 08:10:16 Measurements Intervals [place] Rate: 111 P: 41 WV: 182 QRS: -25 QRSD: 88 T: 29 QT: 318 QTc: 434 Interpretive Statements SINUS TACHYCARDIA BORDERLINE R WAVE PROGRESSION, ANTERIOR LEADS CONSIDER INFERIOR INFARCT, AGE INDETERMINATE BORDERLINE ST-T WAVE ABNORMALITY- HIGH LATERAL LEADS BASELINE ARTIFACT- I, II, III, AVR, AVL, AVF, V1 ABNORMAL ECG No previous ECG available for comparison Electronically Signed On 02-28-2024 08:30:27 CDT by Jeff Krishnamurthy D.O.
[2024-02-28 08:20] LABS: Basophils Percent Auto 0.4 % (0.2-1.2); Eosinophils Absolute Auto 0.4 K/mm3 (0-0.3); Eosinophils Percent Auto 4.2 % (0-4.4); Hematocrit 39.1 % (37.0-47.0); Hemoglobin 13.1 g/dL (12.0-15.0); Immature Granulocyte Absolute 0.04 K/mm3 (0.00-0.031); Immature Granulocyte Percent A 0.4 % (0-0.5); Lymphocytes Absolute Auto 1.45 K/mm3 (0.9-3.2); Lymphocytes Percent Auto 14.1 % (18.3-44.2); Mean Corpuscular HGB Conc 33.5 g/dl (32-36); Mean Corpuscular Hemoglobin 32.8 pg (26-34); Mean Platelet Volume 8.7 fl (7.4-10.4); Monocytes Absolute Auto 0.9 K/mm3 (0.1-0.6); Monocytes Percent Auto 8.6 % (2.6-8.5); Neutrophils Absolute Auto 7.4 K/mm3 (1.3-6.7); Neutrophils Percent Auto 72.3 % (45.5-73.1); Platelet Count Result 310 k/mm3 (150-375); Red Blood Count 3.99 M/mm3 (4.2-5.4); Red Cell Distribution Width 12.3 % (11.5-14.5); White Blood Count 10.3 K/mm3 (4.5-10.0)
[2024-02-28 08:27] LABS: Estimated Glomerular Filt Rate 55
[2024-02-28 08:29] LABS: Prothrombin Time 13.9 Seconds (11.1-14.7)
[2024-02-28 08:30] LABS: Alanine Aminotransferase 14 U/L (6-35); Albumin Level 4.3 g/dL (3.5-5.1); Alkaline Phosphatase 103 U/L (38-126); Anion Gap 11 mmol/L (4-12); Aspartate Amino Transferase 26 U/L (14-36); Bilirubin,Total 0.9 mg/dL (0.2-1.3); Blood Urea Nitrogen 22 mg/dL (7-17); Calcium 9.5 mg/dL (8.4-10.2); Carbon Dioxide 27 mmol/L (22-30); Chloride 97 mmol/L (98-107); Estimated Glomerular Filt Rate > 60; Glucose 129 mg/dL (65-110); Lipase 51 U/L (23-300); Partial Thromboplastin Time 29.8 Seconds (22.3-36.8); Potassium 3.7 mmol/L (3.4-5.0); Sodium 135 mmol/L (137-145)
[2024-02-28 08:41] LABS: Troponin I < 0.012 ng/mL (0.000-0.034)
[2024-02-28 09:13] LABS: NT Pro B Type Natriuretic Pept 679 pg/mL (19.9-100)
--- NOTE | 2024-02-28 09:23 | ED.GENADULT ---
HPI - General Adult General Chief complaint: Chest Pain Stated complaint: chest pain, dyspnea Time Seen by Provider: 02/28/24 08:19 History of Present Illness HPI narrative: This is a 73-year-old female presenting to ED with chief complaint chest pain and shortness of breath. She had a total knee replacement performed on January [address] Noble at [facility]. This morning she developed a brief episode chest pain in the center of her chest that has since resolved. She also notes she had dyspnea on exertion. She notes that she has right leg swelling although she is unsure if this is new or from the surgery. Patient has no history of DVT or blood clots. No fevers chills productive cough or URI symptoms. Related Data Home Medications Medication Instructions Recorded Confirmed cinnamon bark 500 mg capsule 2,000 mg PO DAILY 07/19/20 12/20/23 (Cinnamon) coenzyme Q10 100 mg capsule 200 mg PO DAILY 07/19/20 12/20/23 (CoQ-10) loratadine 10 mg tablet (Claritin) 10 mg PO DAILY 07/19/20 12/20/23 cholecalciferol (vitamin D3) 50 50 mcg PO DAILY 05/12/22 12/20/23 mcg (2,000 unit) capsule yloxylun-gyye-wsop 8 mg-folic 400 1 tablet PO DAILY 05/12/22 12/20/23 mcg-K 50 mcg-lutein 300 mcg tablet (Centrum Silver Women) cyanocobalamin (vitamin B-12) 1,000 mcg PO DAILY 11/11/22 12/20/23 1,000 mcg capsule celecoxib 200 mg capsule mg 02/28/24 pantoprazole 40 mg tablet,delayed 40 mg PO QAM 02/28/24 02/28/24 release (Protonix) Allergies Allergy/AdvReac Type Severity Reaction Status Date / Time sulfamethoxazole Allergy Severe Itching Verified 02/28/24 08:02 adhesive AdvReac Severe LOCAL Verified 02/28/24 08:02 REACTION UNDER TAPE, SKIN BREAKDOWN PMFSH Past Medical History Medical History LEATHA positive Generalized osteoarthritis of multiple sites GERD (gastroesophageal reflux disease) Hyperlipemia Prediabetes Primary hypertension Surgical History Surgical History H/O: hysterectomy History of appendectomy History of breast biopsy History of cholecystectomy History of dilatation and curettage History of ear surgery History of hernia repair History of lithotripsy Family History Family History Mother Diabetes mellitus Hypertension Family history of cardiovascular disease Cerebrovascular accident Family history of cardiac disorder Family history of diabetes mellitus in first degree relative Sibling Diabetes mellitus Family history of malignant neoplasm of uterus Family history of malignant neoplasm Family history of diabetes mellitus in first degree relative Father Family history of lung cancer Other Family history of kidney disease Social History Social History Smoking status: Never smoker Second hand tobacco smoke exposure: No Alcohol intake: never Substance use: never Substance use type: does not use Do You Feel Safe in your Home?: Yes Lack of Transportation: No Lack of Food: Never True Current Housing: I Have Housing Concerned About Future Housing: No Difficulty Paying Gas/Electric Bills: No Difficulty Paying for Meds: No Currently Unemployed: No Education: Trade/Vocational Certificate Difficulty w/ Childcare or Family Care: No Living arrangements: with family Additional living arrangements comments: Occupation/Education: retired Gender identity (if verbalized by the patient): Female Sexual Orientation (if Verbalized by the Patient): Straight or Heterosexual Spiritual care concerns: No Agree to blood products: Yes Exam Narrative: APPEARANCE: No apparent distress. Head: atraumatic. EYES: EOMI, NOSE: Atraumatic NECK: Trachea midline RESPIRATORY: No increased rate of breathing, clear to auscul
[2024-02-28] MEDS: ENOXAPARIN 120 MG/0.8 ML SYRINGE 108 MG SUB-Q (09:49)
[2024-02-28 11:59] LABS: Troponin I < 0.012 ng/mL (0.000-0.034)
--- NOTE | 2024-02-28 12:43 | PC.NURSE ---
@ 1230 Bed assigned RM [id number] Marie on [place] for nurse report
--- NOTE | 2024-02-28 13:03 | ECG_ITS ---
Test Date: 2024-02-28 13:11:53 Measurements Intervals [place] Rate: 93 P: 56 CO: 166 QRS: -20 QRSD: 110 T: 27 QT: 346 QTc: 432 Interpretive Statements SINUS RHYTHM INTRAVENTRICULAR CONDUCTION DELAY DELAYED PRECORDIAL R/S TRANSITION CONSIDER INFERIOR INFARCT, AGE INDETERMINATE BASELINE ARTIFACT- I, III, AVR, AVL, AVF ABNORMAL ECG Compared to ECG 02/28/2024 08:10:16 HEART RATE HAS DECREASED Electronically Signed On 02-28-2024 13:19:07 CDT by Jeff Krishnamurthy D.O.
--- NOTE | 2024-02-28 13:04 | PC.NURSE ---
Report called to MATTI Isidro at [facility] at [phone]. Pt being transferred to room 1312.
== END 2024-02-28 13:54 | disposition short-term general hospital (02) ==
PROVIDERS: Emergency Provider Emergency Medicine; PCP Family Medicine
DX: I26.99 Other pulmonary embolism without acute cor pulmonale (principal); M19.90 Unspecified osteoarthritis, unspecified site; K21.9 Gastro-esophageal reflux disease without esophagitis; E78.5 Hyperlipidemia, unspecified; I10 Essential (primary) hypertension; R06.00 Dyspnea, unspecified
CPT/HCPCS: 36415; 71046; 71275; 80053; 83690; 83880; 84484; 85025; 85610; 85730; 93005; 96372; 99291; J1650; Q9967

== ENCOUNTER 2024-05-02 08:35 | Outpatient (CLI) | payer MEDICARE, SELFPAY ==
--- NOTE | ~2024-05-02 | MM_ITS ---
EXAMINATION: MM screening [facility]issa BI w makenna HISTORY: Screening TECHNIQUE: Craniocaudal and mediolateral oblique 3-D tomosynthesis images were obtained and synthetic 2-D images were generated. CAD analysis was submitted and interpreted. COMPARISON: Comparison to multiple prior studies sequentially, with oldest reviewed study dated 07/03. BREAST PARENCHYMAL COMPOSITION: Not dense: There are scattered areas of fibroglandular density. FINDINGS: There is no evidence of suspicious mass, calcification, or architectural distortion to sugg est malignancy in either breast. There has been no suspicious interval change. IMPRESSION: 1. No mammographic evidence of malignancy. 2. Recommend routine screening mammography in one year. BI-RADS Category 1: Negative Reviewed, dictated and finalized at location B.
== END 2024-05-02 08:36 | disposition home or self-care (01) ==
PROVIDERS: PCP Family Medicine; Visit Provider Family Medicine
DX: Z12.31 Encounter for screening mammogram for malignant neoplasm of breast (principal)
CPT/HCPCS: 77063; 77067

== ENCOUNTER 2025-01-18 09:48 | Outpatient (CLI) | payer MEDICARE, SELFPAY ==
--- NOTE | ~2025-01-18 | DEXA_ITS ---
Bone Density Report Name: GERARDO REBOLLEDO Age: 74 Sex: Female Ethnicity: White Date of : 1950 Indication: postmenopausal; screening for osteoporosis; height loss; hysterectomy; Referring Provider: PHIL WHITAKER Study: Bone densitometry was performed. Exam Date: January 18, 2025 Accession number: [id number] Bone Density: Region BMD T-score Z-score Classification AP Spine(L1-L4) 1.217 1.5 3.8 Normal Femoral Neck (Left) 0.778 -0.6 1.3 Normal Total Hip (Left) 0.941 0.0 1.6 Normal Femoral Neck (Right) 0.741 -1.0 1.0 Normal Total Hip (Right) 0.910 -0.3 1.4 Normal Total Hip Mean 0.926 -0.2 1.5 Normal World Health Organization criteria for BMD impression classify patients as: Normal (T-score at or above -1.0), Osteopenia (T-score between -1.0 and -2.5), or Osteoporosis (T-score at or below -2.5). 10-year Fracture Risk: FRAX not reported because: All T-scores for Spine Total, Hip Total, Femoral Neck at or above -1.0 Clinical Information Provided by Patient: Has used the following medications: Vitamin D, Calcium Has the following medical conditions: Hysterectomy Patient maximum height was 65 Menopause Age: 52 No regular weight bearing exercise Does not regularly consume dairy products Drinks caffeinated beverages Onset of menses at age 11 Number of children 2 Impression: The patient has normal bone mass. Discussion: BONE DENSITY IS ABOVE THE MINIMUM DESIRABLE LEVEL AT ALL SKELETAL SITES TESTED. This patient?s bone mineral density is above the minimum desirable level (T-score -1.0 or better) at all sites measured. The patient should follow a healthful lifestyle (good nutrition with adequate calcium and vitamin D, and appropriate weight-bearing exercise). Follow-Up: Consider repeating this study in 5 years or sooner if there is some new clinical indication. Reported by: FERN on 01/18/2025 10:43:00 AM. Reviewed, dictated and finalized at location A.
--- OUTSIDE RECORDS SUMMARY | 2025-01-18 10:27 | XMS_ITS | Clinical Summary ---
Author Organization [facility] [address] [place] [address] [address] [place] [address] Care Team Providers Care Commercial Cleaner Name Role Phone Constanza Parisi MD Primary Care Provider [phone] Samson Isaacs MD Unavailable Volodymyr Benz MD Unavailable [phone] Ponce Lopez MD Unavailable [phone] Allergies Active Allergy Reactions Criticality Noted Date Comments Adhesive Rash Medium 02/01/2024 Sulfa Rash Medium 10/12/2023 Medications loratadine (CLARITIN) 10 mg tabletIndicatio ns:Allergic Rhinitis Take 1 tablet (10 mg total) by mouth every morning Active atorvastatin (LIPITOR) 10 mg tabletIndicatio ns:hyperlipidem ia Take 0.5 tablets (5 mg total) by mouth every morning 4 Active indapamide (LOZOL) 2.5 mg tabletIndicatio ns:Edema,hypert ension Take 1 tablet (2.5 mg total) by mouth every morning Active lisinopriL (PRINIVIL,ZESTR IL) 40 mg tabletIndicatio ns:hypertension Take 1 tablet (40 mg total) by mouth every morning Active montelukast (SINGULAIR) 10 mg tabletIndicatio ns:Seasonal Allergic Rhinitis Take 1 tablet (10 mg total) by mouth every other day 3 Active cholecalciferol (Vitamin D3) 2000 unit capsuleIndicati ons:Vitamin D Deficiency Take 2 capsules (4,000 Units total) by mouth every morning Active cinnamon bark 500 mg capsuleIndicati ons:supplement Take 1 capsule (500 mg total) by mouth every morning Active coenzyme Q10 200 mg capsuleIndicati ons:supplement Take 1 capsule (200 mg total) by mouth every other day Active multivitamin tabletIndicatio ns:Vitamin Deficiency Prevention Take 1 tablet by mouth every morning Active apixaban (ELIQUIS) 5 mg tabletIndicatio ns:Venous Thrombosis,VTE Prophylaxis Following Ortho Surgery Take 1 tablet (5 mg total) by mouth 2 (two) times a day 180 tablet 3 5 Active cyanocobalamin (Vitamin B-12) 1,000 mcg tabletIndicatio ns:Prevention of Vitamin B12 Deficiency Take 1 tablet (1,000 mcg total) by mouth every morning Active ascorbic acid (vitamin C) 1,000 mg tabletIndicatio ns:Vitamin C Deficiency Take 1 tablet (1,000 mg total) by mouth every morning Active acetaminophen (TYLENOL) 500 mg tabletIndicatio ns:Pain Take 2 tablets (1,000 mg total) by mouth every 6 (six) hours as needed for pain 50 tablet 5 Active traMADoL (ULTRAM) 50 mg tabletIndicatio ns:Pain Take 1 tablet (50 mg total) by mouth every 6 (six) hours as needed for pain 30 tablet 5 Active gabapentin (NEURONTIN) 100 mg capsuleIndicati ons:Postoperati ve Acute Pain Take 1 capsule (100 mg total) by mouth 3 (three) times a day for 20 days 60 capsule 5 Active cyclobenzaprine (FLEXERIL) 10 mg tablet Take 1 tablet (10 mg total) by mouth 3 (three) times a day as needed for muscle spasms 30 tablet 5 Active polyethylene glycol (Miralax) 17 gram/dose bulk powderIndicatio ns:constipation Take 17 g by mouth daily as needed (constipatio n) 12/29/19 25 Discontinue d(Therapy completed) gabapentin (NEURONTIN) 100 mg capsuleIndicati ons:Postoperati ve Acute Pain Take 1 capsule (100 mg total) by mouth 3 (three) times a day for 10 days 30 capsule 5 12/29/19 25 Discontinue d(Reorder) cyclobenzaprine (FLEXERIL) 10 mg tablet Take 1 tablet (10 mg total) by mouth 3 (three) times a day as needed for muscle spasms 30 tablet 5 12/29/19 25 Discontinue d(Reorder) cefadroxil (DURICEF) 500 mg capsuleIndicati ons:Other (complete free text reason below),PJI prevention inhigh risk patient Take 1 capsule (500 mg total) by mouth 2 (two) times a day for 10 days 20 capsule 5 12/21/19 25 Discontinue d(Reorder) cefadroxil (DURICEF) 500 mg capsuleIndicati ons:Other (complete free text reason below),PJI prevention inhigh risk patient Take 1 capsule (500 mg total) by mouth 2 (two) times a day for 10 days 20 capsule 5 12/31/19 25 Active Problems Problem Noted Date Diagnosed Date S/P total knee arthroplasty, left 11/30/2024 Epistaxis 02/29/2024 PTE (pulmonary thromboembolism) 02/28/2024 Assessment & Plan (03/13/2024 9:58 AM CDT): Provoked VTE Doing better with eliquis Recs: 1) Continue eliquis 2) Precautions with DOAC discussed 3) Stay as active as able 4) Stay uptodate with health maintenance/vaccinations Essential hypertension 02/28/2024 Hypercholesterolemia 02/28/2024 Gastroesophageal reflux disease without esophagi tis 02/28/2024 Class 3 severe obesity due t o excess calories with serious comorbidity and body mass index (BMI) of 40.0 to 44.9 in adult 02/28/2024 Seasonal allergies 02/28/2024 History of total knee arthroplasty, right 2023 Primary osteoarthritis of left knee 11/01/2023 Primary osteoarthritis of right knee 10/13/2023 Encounters Date Type Department Care Team Description 01/16/2025 10:30 AM CDT Office Visit [facility] [address] [address] Volodymyr Benz MD PTE (pulmonary thromboembolism) (HCC) (Primary Dx) 12/28/2024 10:20 AM CDT Ancillary Procedure [address] [address] 12/28/2024 10:00 AM CDT Office Visit [address] [address] Genevieve Chilel, MAMADOU Left knee pain, unspecified chronicity (Primary Dx); S/P total knee arthroplasty, left 12/20/2024 Orders Only [facility] [address] [address] Samson Isaacs MD 12/14/2024 Orders Only [facility] [address] Samson Isaacs MD 11/30/2024 9:30 AM CDT Office Visit [address] [address] Genevieve Chilel NP S/P total knee arthroplasty, left (Primary Dx) 11/29/2024 10:00 AM CDT Home Care Visit [address] [address] [address] [place] [address] Rafaela Lam, PT PT OASIS DISCHARGE 11/28/2024 Home Care Visit [address] [address] [address] [place] [address] Vriaj Stark, PT CASE COMMUNICATION 11/27/2024 10:00 AM CDT Home Care Visit [address] [address] [address] [place] [address] Rafaela Lam, PT PT HOME VISIT 11/24/2024 10:30 AM CDT Home Care Visit [address] [address] [address] [place] [address] Rafaela Lam, PT PT HOME VISIT 11/22/2024 11:00 AM CDT Home Care Visit [address] [address] [address] [place] [address] Rafaela Lam, PT PT HOME VISIT 11/21/2024 1:30 PM CDT Home Care Visit [address] [address] [address] [place] [address] Rafaela Lam, PT PT HOME VISIT 11/18/2024 Home Care Visit [address] [address] [address] [place] [address] Socorro Booker, RN NURSE MED [facility] 11/17/2024 1:30 PM CDT Home Care Visit [address] [address] [address] [place] [address] Viraj Stark, PT PT OASIS START OF CARE 11/17/[address] [place] [phone] Miriam Bethea RN 11/17/2024 Plan of Care Documentation [address] [address] [address] [place] [address] 11/17/2024 Telephone [facility] [address] [place] [address] [address] [place] [phone] Samson Isaacs MD verbal order 11/17/2024 Telephone [facility] [address] [place] [phone] Miriam Bethea RN 11/15/2024 1:00 PM CDT - 11/15/2024 4:00 PM CDT Surgery [facility] Operating Room [address] [place] [phone] Samson Isaasc MD Robotic Assisted Left Total Knee Arthroplasty 11/15/2024 12:48 PM CDT Anesthesia Event [facility] Operating Room [address] [place] [address] Ruddy Bowers MD Small, Jeffrey Barrett, MD 11/15/2024 10:27 AM CDT - 11/16/2024 11:35 AM CDT Hospital Encounter [facility] [address] [place] [phone] Samson Isaacs MD Primary osteoarthritis of left knee (Primary Dx); S/P total knee arthroplasty, left Discharge Disposition: Discharge to home, home health skilled care 11/13/2024 Telephone [facility] [address] [place] [address] Miriam Bethea RN 10/27/2024 Telephone [facility] Pre Anesthesia Testing [address] [place] [phone] Maranda Moffett RN 10/26/2024 10:15 AM CDT Pre-Admission Testing [facility] Pre Anesthesia Testing [address] [place] [phone] Preop testing (Primary Dx) 10/18/2024 Orders Only [facility] [address] [place] [phone] Edilma Marion Status post left knee replacement (Primary Dx); Primary osteoarthritis of left knee from Last 3 Months Surgical History Surgery Date Site/Laterality Comments CHOLECYSTECTOMY 09/30/1981 - 10/30/1981 EAR SURGERY 08/02/1988 - 08/01/1989 APPENDECTOMY 07/02/2003 - 08/01/2003 HERNIA REPAIR 01/30/2007 - 03/01/2007 LITHOTRIPSY 01/31/2012 - 03/01/2012 MENISCUS SURGERY 09/30/2014 - 10/30/2014 Left DILATION AND CURETTAGE OF UTERUS 07/02/2020 - 0 HYSTERECTOMY 08/02/2020 - 09/01/2020 TUBAL LIGATION TOTAL KNEE ARTHROPLASTY 02/01/2024 Right BREAST BIOPSY 03/02/2005 - 04/01/2005 Medical History Medical History Date Comments Primary osteoarthritis of right knee Morbid obesity (HCC) HTN (hypertension) HLD (hyperlipidemia) Nephrolithiasis DVT (deep venous thrombosis) (HCC) 01/2024 Pulmonary emboli (HCC) 01/2024 Social History Tobacco Use Types Packs/Day Years Used Date Smoking Tobacco: Never Passive Smoke Exposure: Past Smokeless Tobacco: Never Tobacco Cessation:Counseling Given: Not Answered OASIS D0700: Social Isolation Answer Da te Recorded Frequency of experiencing loneliness or isolatio n Never 11/29/2024 OASIS A1250: Transportation Answer Date Recorded Lack of Transportation (Medical) No 11/29/2024 Lack of Transportation (Non-Medical) No 11/29/2024 Patient Unable or Declines to Respond No 11/29/2024 OASIS B1300: Health Literacy Answer Anurag e Recorded Frequency of needing help to read materials from doctor or pharmacy Never 11/29/2024 AUDIT-C Answer Date Recorded Q1: How often do you have a drink containing alcohol? Never 11/15/2024 Q2: How many drinks containi ng alcohol do you have on a typical day when you are drinking? Patient does not drink Q3: How often do you have si x or more drinks on one occasion? Never 11/15/2024 PHQ-2 Answer Date Recorded PHQ-2 Total Score (If total score is 3 or more points, staff should administer the PHQ-9) 0 03/13/2024 Personal Safety Answer Date Recorded Have you ever been in or are you currently in a harmful physical or emotional relationship or is someone making you feel afraid or unsafe? Denies 11/15/2024 Comments No Sex and Gender Information Value Date Recorded Sex Assigned at Not on file Legal Sex Female 3:34 AM OBJECTS CONSERVATOR Gender Identity Female 08/02/2023 4:24 PM OBJECTS CONSERVATOR Sexual Orientation Straight 08/02/2023 4: 24 PM OBJECTS CONSERVATOR Obstetrics History Last Filed Vital Signs Vital Sign Reading Time Taken Comments Blood Pressure 142/70 11/27/2024 12:00 AM CDT Pulse 78 11/27/2024 12:00 AM CDT Temperature 36.5 C (97.7 F) 11/27/2024 12:00 AM CDT Respiratory Rate 18 11/27/2024 12:00 AM CDT Oxygen Saturation 98% 11/27/2024 12:00 AM CDT Inhaled Oxygen Concentration - - Weight 111.6 kg (246 lb) 12/28/2024 10:17 AM CDT Height 167.6 cm (5' 6) 12/28/2024 10:17 AM CDT Body Mass Index 39.71 12/28/2024 10:17 AM CDT Plan of Treatment Health Maintenance Due Date Last Done Comments Breast Cancer Screening-Mammogram 1952 Colon Cancer Screening-Colonoscopy 1950 Hepatitis C Screening 1950 Osteoporosis Screening-Bone Density Scan 1952 DTaP/Tdap/Td Vaccine (1 - Tdap) 10/21/1963 Hepatitis B Screening 1970 Pneumococcal vaccine 65+ (1 of 1 - PCV) 2002 Zoster Vaccine (1 of 2) 2002 Well Visit 65+ 2017 Depression Screening 03/13/2025 03/13/2024 Influenza Vaccine (Season Ended) 2025 Fall Risk Assessment 11/16/2025 11/16/2024 Medical Devices Implanted Type Area Associate Director Of Sales Device Identifier Shelf Expiration Date Model / Serial / Lot [employer] [place] R High Viscosity Cement 40gm Bone Green [id number] - [id number] Implanted:Qty: 1 on 02/01/2024 by Samson Isaacs MD at [facility] Right: Knee [employer] 05/01/2028 [id number] / / [id number] [employer] [place] R High Viscosity Cement 40gm Bone Green [id number] - [id number] Implanted:Qty: 1 on 02/01/2024 by Samson Isaacs MD at [facility] Right: Knee [employer] 05/01/2028 [id number] / / [id number] Pro & Nephew/Richco/Or tho Journey Ii Cruciate Retain Knee Right 4 Component Femoral Oxinium [id number] - [id number] Implanted:Qty: 1 on 02/01/2024 by Samson Isaacs MD at [facility] Right: Knee [employer]/O rtho [id number] 10/08/2033 [id number] / / [id number] [employer]hew/Rich[employer]/Or tho Journey Bicruciate Stabilize Knee Right 3 Baseplate Tibial [id number] - [id number] Implanted:Qty: 1 on 02/01/2024 by Samson Isaacs MD at [facility] Right: Knee [employer]O rtho [id number] 09/14/2033 [id number] / / [id number] Pro [employer]hew/Richco/Or tho Insert Tibial Knee Fixed Rt Deep [facility] Journey Ii 18mm Size 3 4 Polyethylene [id number] - [id number] Implanted:Qty: 1 on 02/01/2024 by Samson Isaacs MD at [facility] Right: Knee [employer]/O rtho [id number] 09/21/2027 [id number] / / [id number] [employer]/Or tho Maryann Ii [id number] Knee Oval Component Patellar Uhmwpe 36320985 - [id number] Implanted:Qty: 1 on 02/01/2024 by Samson Isaacs MD at [facility] Right: Knee [employer]/O rtho [id number] 10/06/2033 [id number] / / [id number] [employer]hew[employer]Rich[employer]/Or tho Journey Ii 67.5x62.7mm Bicruciate Stabilize Knee Left 5 Component [id number] - [id number] Implanted:Qty: 1 on 11/15/2024 by Samson Isaacs MD at [facility] Left: Knee [employer] rtho [id number] 05/07/2034 [id number] / / [id number] [employer]hew/Richco/Or tho Insert Artic 3-4 13mm Knee Left Bicruciate Stab Constrain [id number] - [id number] Implanted:Qty: 1 on 11/15/2024 by Samson Isaacs MD at [facility] Left: Knee [employer]/O rtho [id number] 03/12/2034 [id number] / / [id number] [employer]hew/Richco/Or tho Journey Knee Left 3 Baseplate Tibial [id number] - [id number] Implanted:Qty: 1 on 11/15/2024 by Samson Isaacs MD at [facility] Left: Knee [employer]/O rtho [id number] 08/05/2034 [id number] / / [id number] Pro [employer] Nephew[employer]Rich[employer]/Or tho Maryann Ii [id number] Knee Oval Component Patellar Uhmwpe [id number] - [id number] Implanted:Qty: 1 on 11/15/2024 by Samson Isaacs MD at [facility] Left: Knee [employer]/O rtho [id number] 06/29/2034 [id number] / / [id number] Procedures Procedure Name Priority Date/Time Associated Diagnosis Comments XR KNEE LEFT 3 VIEWS Schedule Routine, Read Routine (OP Routine) 12/28/2024 10:32 AM CDT Left knee pain, unspecified chronicity XR KNEE LEFT 1 OR 2 VIEWS IP Routine 11/15/2024 4:00 PM CDT MI AN PROCEDURE PLACEHOLDER Routine 11/15/2024 1:04 PM CDT MI AN ELECTIVE ENDOTRACHEAL AIRWAY Routine 11/15/2024 1:04 PM CDT ARTHROPLASTY TOTAL KNEE - S&N CORI 11/15/2024 12:48 PM CDT Primary osteoarthritis of left knee MI AN PROCEDURE PLACEHOLDER Routine 11/15/2024 12:22 PM CDT EGFR Routine 10/26/2024 11:37 AM CDT Preop testing DIFFERENTIAL AUTO Routine 10/26/2024 11:37 AM CDT Preop testing CBC WITH AUTO DIFFERENTIAL Routine 10/26/2024 11:37 AM CDT Preop testing HEMOGLOBIN A1C Routine 10/26/2024 11:37 AM CDT Preop testing COMPREHENSIVE METABOLIC PANEL Routine 10/26/2024 11:37 AM CDT Preop testing ECG 12-LEAD Routine 10/26/2024 11:20 AM CDT Preop testing from Last 3 Months Results * XR Knee Left 3 View (12/28/2024 10:32 AM CDT) Anatomical Region Laterality Modality Lower Extremities, Knee Left Computed Radiography 12/28/2024 11:2 1 AM CDT Impressions 12/28/2024 11:21 AM CDT FINDINGS/IMPRESSION: Postoperative changes of left knee arthroplasty. Hardware is intact and in expected alignment. No periprosthetic fracture is identified. Left knee effusion. Generalized soft tissue swelling. Partially imaged right knee arthroplasty hardware. Subtle vascular calcifications. Electronically signed by: Simón Little M.D. Narrative 12/28/2024 11:21 AM CDT EXAM: XR KNEE LEFT 3 VIEWS INDICATION: Pain COMPARISON: Radiograph 11/15/2024 Procedure Note Simón Little MD - 12/28/2024 EXAM: XR KNEE LEFT 3 VIEWS INDICATION: Pain COMPARISON: Radiograph 11/15/2024 IMPRESSION: FINDINGS/IMPRESSION: Postoperative changes of left knee arthroplasty. Hardware is intact and in expected alignment. No periprosthetic fracture is identified. Left knee effusion. Generalized soft tissue swelling. Partially imaged right knee arthroplasty hardware. Subtle vascular calcifications. Electronically signed by: Simón Little M.D. Genevieve Chilel SENIOR TECHNICAL SPECIALIST IMG XR PROCEDURES Final Result * XR Knee Left 1 or 2 View (11/15/2024 4:00 PM CDT) Anatomical Region Laterality Modality Lower Extremities, Knee Left Computed Radiography 11/15/2024 4:12 PM CDT Impressions 11/15/2024 4:12 PM CDT 1. Knee arthroplasty within expected limits. COMMENT: Please see above for additional findings. Electronically signed by: Spencer Heath M.D. Narrative 11/15/2024 4:12 PM CDT XR KNEE LEFT 1 OR 2 VIEWS HISTORY: Knee osteoarthritis, knee arthroplasty COMPARISON: None available FINDINGS: The patient is immediately status post a knee arthroplasty. The components are well seated. There is no evidence of fracture. Air is noted in the joint space and soft tissues consistent with immediate postoperative state. Procedure Note Spencer Heath MD - 11/15/2024 XR KNEE LEFT 1 OR 2 VIEWS HISTORY: Knee osteoarthritis, knee arthroplasty COMPARISON: None available FINDINGS: The patient is immediately status post a knee arthroplasty. The components are well seated. There is no evidence of fracture. Air is noted in the joint space and soft tissues consistent with immediate postoperative state. IMPRESSION: 1. Knee arthroplasty within expected limits. COMMENT: Please see above for additional findings. Electronically signed by: Spencer Heath M.D. Samson Isaacs MD IMG XR PROCEDURES Final Result * MI AN ELECTIVE ENDOTRACHEAL AIRWAY, MI AN PROCEDURE PLACEHOLDER (11/15/2024 1:04 PM CDT) Narrative Nitin Morrow CRNA - 11/15/2024 1:04 PM CDT Nitin Morrow CRNA 11/15/2024 1:05 PM Airway Patient location: OR Urgency: elective Date/time: 11/15/2024 12:58 PM Indications for airway management: anesthesia Difficult airway: no Staff: Placed by: Anesthesiologist: Viraj Smith MD VEHICLE COST ENGINEER: Nitin Morrow CRNA Emergent airway documentation: Risks and benefits discussed: yes Consent obtained: yes Consent given by: patient Airway prep: Preoxygenated: yes Patient position: sniffing Mask difficulty assessment: 2 - vent by mask + OA or adjuvant Sedation level during airway: GA Final airway details: Final airway type: endotracheal airway Tube type: ETT ETT size: 7.0 mm Cuffed: yes Technique used for successful ETT placement: video laryngoscopy Devices/Methods used in placement: stylet Insertion site: oral Blade type: Ck Video blade type: Kerns Blade size: 3 Cormack-Lehane (video): grade I - full view of glottis Cuff volume: 7 mL Cuff inflated with: air ETT to lips: 22 cm Placement verified by: auscultation and CO2 detection Airway secured with: silk tape Number of attempts: 1 Additional comments: Performed by MERCEDEZ Hernandez Viraj Smith MD ANESTHESIA ORDERABLES F inal Result * MI AN PROCEDURE PLACEHOLDER (11/15/2024 12:22 PM CDT) Narrative Viraj Smith MD - 11/15/2024 12:22 PM CDT Viraj Smith MD 11/15/2024 12:22 PM Peripheral Block Patient location during procedure: pre-op holding Reason for block: post-op pain management per surgeon request Ultrasound image in chart or stored: yes Block type: single shot Laterality: left Block type: saphenous nerve block - subsartorial approach Procedure prep: Preprocedure checklist: patient identified, procedure contraindications assessed, site marked, procedure consent, surgical consent, IV checked, risks, benefits and alternatives discussed, monitors and equipment checked and timeout performed Patient position: supine Procedure performed while patient: sedate with meaningful contact Monitoring: oximetry Supplemental O2: nasal cannula Prep solution: chlorhexidine/alcohol Peripheral nerve block: Technique: ultrasound guided Needle type: short-bevel and echogenic Needle gauge: 21 G Needle length: 80 mm Injection assessment: injection made incrementally with constant monitoring, local visualized surrounding nerve on ultrasound, negative aspiration for heme, no paresthesias noted, normal resistance to injection and see flowsheet for medication details Assessment: Block success: full evaluation pending Events: patient tolerated procedure well with no complications us Viraj Smith MD ANESTHESIA ORDERABLES F inal Result * eGFR (10/26/2024 11:37 AM CDT) eGFR 89 >=60 mL/min/1. 73 m2 Comment: Interpretive Data Reference Interval Normal >/= 90 mL/min/1.73m2 Mildly decreased* 60 - 89 mL/min/1.73m2 Mildly to moderately decreased 45 - 59 mL/min/1.73m2 Moderately to severely decreased 30 - 44 mL/min/1.73m2 Severely decreased 15 - 29 mL/min/1.73m2 Kidney Failure < 15 mL/min/1.73m2 *Relative to young adult level Estimated glomerular filtration rate is determined by the 2020 CKD-EPI equation recommended by the National Kid[employer] (A Unifying Approach to GFR Estimation: Recommendations of the NKF-ASK Task Force on Reassessing the Inclusion of Race in Diagnosing Kidney Disease, JASN 2020). The CKD-EPI equation should not be used for patients with unstable renal function and has not been validated in children and those over 70. Current interpretive data was last reviewed 2021. Blood 10/26/2024 11:3 7 AM CDT 10/26/2024 11:37 AM CDT us Trudy Soria SENIOR TECHNICAL SPECIALIST LAB BLOOD ORDERAB LES Final Result [facility] [address] Department [place] [address] * (ABNORMAL) Differential, auto (10/26/2024 11:37 AM CDT) Neutrophil abs 7.9(H) 1.5 - 6.5 K/cumm Imm gran abs 0.0 0.0 - 0.1 K/cumm [facility] Lymphocyte abs 1.3 0.8 - 3.3 K/cumm [facility] Monocyte abs 0.8 0.2 - 0.8 K/cumm [facility] Eosinophil abs 0.1 0.0 - 0.5 K/cumm [facility] Basophil abs 0.0 0.0 - 0.1 K/cumm [facility] Neutrophil pct 78.2 % [facility] Comment: Interpretive Data Percent cell count reference ranges are not reported, since discordance with absolute values may lead to misinterpretation of CBC data. Current Interpretive Data was last revised on 2017. Imm gran pct 0.3 % [facility] Comment: Interpretive Data Percent cell count reference ranges are not reported, since discordance with absolute values may lead to misinterpretation of CBC data. Current Interpretive Data was last revised on 2017. Lymphocyte pct 12.5 % [facility] Comment: Interpretive Data Percent cell count reference ranges are not reported, since discordance with absolute values may lead to misinterpretation of CBC data. Current Interpretive Data was last revised on 2017. Monocyte pct 8.1 % [facility] Comment: Interpretive Data Percent cell count reference ranges are not reported, since discordance with absolute values may lead to misinterpretation of CBC data. Current Interpretive Data was last revised on 2017. Eosinophil pct 0.6 % [facility] Comment: Interpretive Data Percent cell count reference ranges are not reported, since discordance with absolute values may lead to misinterpretation of CBC data. Current Interpretive Data was last revised on 2017. Basophil pct 0.3 % [facility] Comment: Interpretive Data Percent cell count reference ranges are not reported, since discordance with absolute values may lead to misinterpretation of CBC data. Current Interpretive Data was last revised on 2017. Blood 10/26/2024 11:3 7 AM CDT 10/26/2024 11:37 AM CDT us Trudy Soria SENIOR TECHNICAL SPECIALIST LAB BLOOD ORDERAB LES Final Result [facility] [address] Department [place] [address] * (ABNORMAL) CBC with auto differential (10/26/2024 11:37 AM CDT) WBC 10.0(H) 3.8 - 9.9 K/cumm Hgb 14.4 11.9 - 15.5 g/dL [facility] Hct 41.3 35.6 - 45.5 % [facility] Plt 294 150 - 400 K/cumm [facility] MPV 8.6(L) 9.1 - 12.3 fL [facility] RBC 4.43 3.90 - 5.20 M/cumm [facility] MCV 93.2 81.3 - 96.4 fL [facility] MCH 32.5 27.1 - 33.3 pg [facility] MCHC 34.9 32.3 - 35.7 g/dL [facility] RDW CV 11.9 11.1 - 14.9 % [facility] RDW SD 41.4 35.7 - 48.1 fL [facility] NRBC abs 0.00 0.00 - 0.01 K/cumm [facility] Blood 10/26/2024 11:3 7 AM CDT 10/26/2024 11:37 AM CDT Trudy Soria SENIOR TECHNICAL SPECIALIST LAB BLOOD ORDERAB LES Final Result Performing Organization Address City/[facility]/ZIP Co de Phone Number [facility] [address] [place] [address] * (ABNORMAL) Hemoglobin A1c (10/26/2024 11:37 AM CDT) Hgb A1C 5.8(H) 4.0 - 5.6 % Estimated Average Glucose 120 mg/dL [facility] Comment: The ADA recommends reporting an estimated Average Glucose (eAG) with all Hemoglobin A1c results using the equation derived from a study of 507 normal and diabetic adults. Minority populations were underrepresented and children were not included. (Diabetes Care 31:3055-5825, 2008). The eAG is not equivalent to a fasting glucose. Blood 10/26/2024 11:3 7 AM CDT 10/26/2024 11:37 AM CDT Trudy Soria NP LAB BLOOD ORDERAB LES Final Result [facility] [address] [place] [address] * (ABNORMAL) Comprehensive metabolic panel (10/26/2024 11:37 AM CDT) Sodium 132(L) 135 - 145 mmol/L Potassium, pl 3.2(L) 3.3 - 4.9 mmol/L [facility] Chloride 91(L) 97 - 110 mmol/L [facility] CO2 26 22 - 32 mmol/L [facility] Anion gap 15 2 - 15 mmol/L [facility] BUN 11 6 - 25 mg/dL [facility] Creatinine 0.72 0.60 - 1.10 mg/dL [facility] Glucose 97 70 - 199 mg/dL [facility] Comment: Interpretive Data Fasting glucose >/= 126 mg/dl is diagnostic for diabetes. Fasting is defined as no caloric intake for at least 8 hours. Fasting glucose between 100 mg/dl to 125 mg/dl is diagnostic of prediabetes. In a patient with classic symptoms of hyperglycemia or hyperglycemic crisis, a random glucose >/= 200 mg/dl is diagnostic for diabetes. In the absence of unequivocal hyperglycemia, results should be confirmed by repeat testing. The classification and Diagnosis of Diabetes Diabetes Care 2021; 46: S19-S40. Current interpretive data was last revised 2022. Calcium 9.8 8.5 - 10.3 mg/dL [facility] Bilirubin, total 0.8 0.1 - 1.2 mg/dL [facility] Protein, pl 6.8 6.5 - 8.5 g/dL [facility] Albumin 3.8 3.5 - 5.0 g/dL [facility] Alk phos 70 40 - 130 Units/L [facility] ALT 16 7 - 45 Units/L [facility] AST 22 10 - 45 Units/L [facility] Blood 10/26/2024 11:3 7 AM CDT 10/26/2024 11:37 AM CDT Trudy Soria SENIOR TECHNICAL SPECIALIST LAB BLOOD ORDERAB LES Final Result [facility] [address] Department [place] [address] * ECG 12 lead (10/26/2024 11:20 AM CDT) 10/26/2024 11:2 0 AM CDT Narrative [facility] - 10/27/2024 8:30 AM CDT Vent Rate: 73 bpm RR Interval: 814 msec MI Interval: 179 msec QRS Duration: 102 msec QT Interval: 412 msec QTC Interval: 438 msec P-R-T Afton: 51 - -3 - 29 degrees IMPRESSION: SINUS RHYTHM CANNOT EXCLUDE SEPTAL MYOCARDIAL INFARCTION , OF INDETERMINATE AGE BORDERLINE ECG Electronically Signed By: Bernard michelle Trudy Soria SENIOR TECHNICAL SPECIALIST ECG ORDERABLES F inal Result [facility] from Last 3 Months Insurance A[employer] MEDICARE GOLD AET[employer] MEDICARE GOLD Advance Directives For more information, please contact: [phone] * Full Code (Latest Code Status on File) Date Activated Date Inactivated Comments 11/15/2024 5:33 PM 11/16/2024 3:35 PM * Full Code Date Activated Date Inactivated Comments 02/28/2024 3:07 PM 03/01/2024 7:07 PM * Full Code Date Activated Date Inactivated Comments 02/01/2024 2:15 PM 02/02/2024 5:43 PM Care Teams Commercial Cleaner Relationship Specialty Start Date End Date Constanza Parisi MD PCP - General Family Medicine 08/30/23 Samson Isaacs MD [address] [place] [address] Consulting Physician Orthopedic Surgery 02/02/24 Volodymyr Benz MD [address] [facility] [address] [place] [address] Consulting Physician Pulmonary Disease 03/01/24 Ponce Lopez MD [address] [place] [address] Consulting Physician Otolaryngology 03/01/24
--- OUTSIDE RECORDS SUMMARY | 2025-01-18 10:27 | XMS_ITS | Referral Summary ---
Author Organization [facility] PSA [address] [facility] Address [address] [place] [address] Care Team Providers Care Chemical Treatment Plant Technician Name Role Phone Constanza Parisi MD Primary Care Provider [phone] Samson Isaacs MD Unavailable [phone] Volodymyr Benz MD Unavailable Ponce Lopez MD Unavailable [phone] Encounters Date Type Department Care Team Description 01/16/2025 10:30 AM CDT Office Visit [facility] [address] [address] Volodymyr Benz MD PTE (pulmonary thromboembolism) (HCC) (Primary Dx) 12/28/2024 10:20 AM CDT Ancillary Procedure [facility] [address] [address] 12/28/2024 10:00 AM CDT Office Visit [facility] [address] [address] Genevieve Chilel NP Left knee pain, unspecified chronicity (Primary Dx); S/P total knee arthroplasty, left 12/20/2024 Orders Only [facility] [address] [address] Samson Isaacs MD 12/14/2024 Orders Only [facility] [address] [place] [address] [place] [address] Samson Isaacs MD 11/30/2024 9:30 AM CDT Office Visit [facility] [address] [place] [address] [place] [phone] Genevieve Chilel, MAMADOU S/P total knee arthroplasty, left (Primary Dx) 11/29/2024 10:00 AM CDT Home Care Visit [address] [place] [address] Rafaela Lam, PT PT OASIS DISCHARGE 11/28/2024 Home Care Visit [address] [place] [address] Vriaj Stark, PT CASE COMMUNICATION 11/27/2024 10:00 AM CDT Home Care Visit [address] [place] [address] Rafaela Lam, PT PT HOME VISIT 11/24/2024 10:30 AM CDT Home Care Visit [address] [place] [address] Rafaela Lam, PT PT HOME VISIT 11/22/2024 11:00 AM CDT Home Care Visit [address] [place] [address] Rafaela Lam, PT PT HOME VISIT 11/21/2024 1:30 PM CDT Home Care Visit [address] [place] [address] Rafaela Lam, PT PT HOME VISIT 11/18/2024 Home Care Visit [address] [place] [address] Socorro Booker, MATTI NURSE MED RECON FOR THERAPY 11/17/2024 Telephone [facility] [address] [facility] [address] [place] [address] Miriam Bethea RN 11/17/2024 Plan of Care Documentation [address] [address] [address] [place] [address] 11/17/2024 Telephone [facility] [address] [place] [address] [address] [place] [address] Samson Isaacs MD verbal order 11/17/2024 Telephone [facility] [address] [facility] [address] [place] [address] Miriam Bethea RN 11/17/2024 1:30 PM CDT Home Care Visit [address] [address] [address] [place] [address] Viraj Stark, PT PT OASIS START OF CARE 11/15/2024 10:27 AM CDT - 11/16/2024 11:35 AM CDT Hospital Encounter [facility] [address] [place] [phone] Samson Isaacs MD Primary osteoarthritis of left knee (Primary Dx); S/P total knee arthroplasty, left Discharge Disposition: Discharge to home, home health skilled care 11/15/2024 1:00 PM CDT - 11/15/2024 4:00 PM CDT Surgery [facility] Operating Room [address] [place] [phone] Samson Isaacs MD Robotic Assisted Left Total Knee Arthroplasty 11/15/2024 12:48 PM CDT Anesthesia Event [facility] Operating Room [address] [place] [phone] Ruddy Bowers MD Small, Jeffrey Barrett, MD 11/13/[address] [place] [address] Miriam Bethea RN 10/27/2024 Telephone [facility] Pre Anesthesia Testing [address] [place] [phone] Maranda Moffett RN 10/26/2024 10:15 AM CDT Pre-Admission Testing [facility] Pre Anesthesia Testing [address] [place] [phone] Preop testing (Primary Dx) 10/18/2024 Orders Only [facility] [address] [facility] [address] [place] [phone] Edilma Marion Status post left knee replacement (Primary Dx); Primary osteoarthritis of left knee from Last 3 Months Allergies Active Allergy Reactions Criticality Noted Date [...] 11/01/2023 Primary osteoarthritis of right knee 10/13/2023 Social History Tobacco Use Types Packs/Day Years [...] on file Legal Sex Female 3:34 AM LEAD RAMP 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 Gender Identity Female 08/02/2023 4:24 PM LEAD RAMP AGENT Sexual Orientation Straight 08/02/2023 4: 24 PM LEAD RAMP AGENT Last Filed Vital Signs Vital Sign Reading [...] 12/28/2024 10:17 AM CDT Plan of Treatment Not on file Medical Devices Implanted Type Area Delivery Room Clerk Device Identifier Shelf Expiration Date Model / Serial / Lot [employer] [place] R High Viscosity Cement 40gm Bone Green [id number] - [id number] Implanted:Qty: 1 on 02/01/2024 by Samson Isaacs MD at [facility] Right: Knee [employer] 05/01/2028 [id number] / / [id number] [employer] [place] R High Viscosity Cement 40gm Bone Green [id number] - [id number] Implanted:Qty: 1 on 02/01/2024 by Samson Isaacs MD at [facility] Right: Knee [employer] 05/01/2028 [id number] / / [id number] Pro & Nephew/Richco/Or tho Journey Ii Cruciate Retain Knee Right 4 Component Femoral Oxinium [id number] - [id number] Implanted:Qty: 1 on 02/01/2024 by Samson Isaacs MD at [facility] Right: Knee [employer] Nephew/Rich[employer]/O rtho [id number] 10/08/2033 [id number] / / [id number] Pro [employer] Nephew/Richco/Or tho Journey Bicruciate Stabilize Knee Right 3 Baseplate Tibial [id number] - [id number] Implanted:Qty: 1 on 02/01/2024 by Samson Isaacs MD at [facility] Right: Knee [employer]hew/Rich[employer]/O rtho [id number] 09/14/2033 [id number] / / [id number] Pro [employer] Nephew/Richco/Or tho Insert Tibial Knee Fixed Rt Deep [facility] Journey Ii 18mm Size 3 4 Polyethylene [id number] - [id number] Implanted:Qty: 1 on 02/01/2024 by Samson Isaacs MD at [facility] Right: Knee [employer]/Rich[employer]/O rtho [id number] 09/21/2027 [id number] / / [id number] Pro [employer] Nephew/Rich[employer]/Or tho Maryann Ii [id number] Knee Oval Component Patellar Uhmwpe [id number] - [id number] Implanted:Qty: 1 on 02/01/2024 by Samson Isaacs MD at [facility] Right: Knee [employer]/Rich[employer]/O rtho [id number] 10/06/2033 [id number] / / [id number] Pro & Nephew/Richco/Or tho Journey Ii 67.5x62.7mm Bicruciate Stabilize Knee Left 5 Component [id number] - [id number] Implanted:Qty: 1 on 11/15/2024 by Samson Isaacs MD at [facility] Left: Knee [employer]/O rtho [id number] 05/07/2034 [id number] / / [id number] Pro & Nephew/Richco/Or tho Insert Artic 3-4 13mm Knee Left Bicruciate Stab Constrain [id number] - [id number] Implanted:Qty: 1 on 11/15/2024 by Samson Isaacs MD at [facility] Left: Knee Pro [employer] Nephew/Rich[employer]/O rtho [id number] 03/12/2034 [id number] / / [id number] Pro & Nephew/Richco/Or tho Journey Knee Left 3 Baseplate Tibial [id number] - [id number] Implanted:Qty: 1 on 11/15/2024 by Samson Isaacs MD at [facility] Left: Knee Pro [employer] Nephew/Richco/O rtho [id number] 08/05/2034 [id number] / / [id number] Pro & Nephew/Richco/Or tho Maryann Ii [id number] Knee Oval Component Patellar Uhmwpe [id number] - [id number] Implanted:Qty: 1 on 11/15/2024 by Samson Isaacs MD at [facility] Left: Knee Pro [employer] Nephew/Richco/O rtho [id number] 06/29/2034 [id number] / / [id number] Procedures Procedure Name Priority Date/Time Associated Diagnosis Comments XR KNEE LEFT 3 VIEWS Schedule Routine, Read Routine (OP Routine) 12/28/2024 10:32 AM CDT Left knee pain, unspecified chronicity XR KNEE LEFT 1 OR 2 VIEWS IP Routine 11/15/2024 4:00 PM CDT LA AN PROCEDURE PLACEHOLDER Routine 11/15/2024 1:04 PM CDT LA AN ELECTIVE ENDOTRACHEAL AIRWAY Routine 11/15/2024 1:04 PM CDT ARTHROPLASTY TOTAL KNEE - S&N CORI 11/15/2024 12:48 PM CDT Primary osteoarthritis of left knee LA AN PROCEDURE PLACEHOLDER Routine 11/15/2024 12:22 PM [...] signed by: Simón Little M.D. Genevieve Chilel NP IMG XR PROCEDURES Final Result * XR [...] MD IMG XR PROCEDURES Final Result * LA AN ELECTIVE ENDOTRACHEAL AIRWAY, LA AN PROCEDURE PLACEHOLDER (11/15/2024 1:04 PM CDT) Narrative Nitin Morrow CRNA - 11/15/2024 1:04 PM CDT Nitin Morrow CRNA 11/15/2024 1:05 PM Airway Patient location: OR Urgency: elective Date/time: 11/15/2024 12:58 PM Indications for airway management: anesthesia Difficult airway: no Staff: Placed by: Anesthesiologist: Viraj Smith MD ETHNOARCHAEOLOGIST: Nitin Morrow CRNA Emergent airway documentation: Risks [...] 1 Additional comments: Performed by MERCEDEZ Hernandez Authormaritza Provider Result Type Result Stat us Viraj Smith MD ANESTHESIA ORDERABLES F inal Result * LA AN PROCEDURE PLACEHOLDER (11/15/2024 12:22 PM CDT) [...] NP LAB BLOOD ORDERAB LES Final Result [facility] [address] [place] [address] * (ABNORMAL) Differential, auto (10/26/2024 11:37 AM CDT) Neutrophil abs 7.9(H) 1.5 - 6.5 K/cumm Imm gran abs 0.0 0.0 - 0.1 K/cumm [facility] Lymphocyte abs 1.3 0.8 - 3.3 K/cumm [facility] Monocyte abs 0.8 0.2 - 0.8 K/cumm [facility] Eosinophil abs 0.1 0.0 - 0.5 K/cumm [facility] Basophil abs 0.0 0.0 - 0.1 K/cumm [facility] Neutrophil pct 78.2 % [facility] Comment: Interpretive Data Percent cell count reference ranges are not reported, since discordance with absolute values may lead to misinterpretation of CBC data. Current Interpretive Data was last revised on 2017. Imm gran pct 0.3 % [facility] Comment: Interpretive Data Percent cell count reference ranges are not reported, since discordance with absolute values may lead to misinterpretation of CBC data. Current Interpretive Data was last revised on 2017. Lymphocyte pct 12.5 % [facility] Comment: Interpretive Data Percent cell count reference ranges are not reported, since discordance with absolute values may lead to misinterpretation of CBC data. Current Interpretive Data was last revised on 2017. Monocyte pct 8.1 % [facility] Comment: Interpretive Data Percent cell count reference ranges are not reported, since discordance with absolute values may lead to misinterpretation of CBC data. Current Interpretive Data was last revised on 2017. Eosinophil pct 0.6 % [facility] Comment: Interpretive Data Percent cell count reference ranges are not reported, since discordance with absolute values may lead to misinterpretation of CBC data. Current Interpretive Data was last revised on 2017. Basophil pct 0.3 % [facility] Comment: Interpretive Data Percent cell count reference ranges are not reported, since discordance with absolute values may lead to misinterpretation of CBC data. Current Interpretive Data was last revised on 2017. Blood 10/26/2024 11:3 7 AM CDT 10/26/2024 11:37 AM CDT Trudy Soria NP LAB BLOOD ORDERAB LES Final Result [facility] [address] Department of Laboratories [place], [place] [address] * (ABNORMAL) CBC with auto differential (10/26/2024 11:37 AM CDT) Pathologist [facility] WBC 10.0(H) 3.8 - 9.9 K/cumm Hgb 14.4 11.9 - 15.5 g/dL [facility] Hct 41.3 35.6 - 45.5 % [facility] Plt 294 150 - 400 K/cumm [facility] MPV 8.6(L) 9.1 - 12.3 fL [facility] RBC 4.43 3.90 - 5.20 M/cumm [facility] MCV 93.2 81.3 - 96.4 fL [facility] MCH 32.5 27.1 - 33.3 pg [facility] MCHC 34.9 32.3 - 35.7 g/dL [facility] RDW CV 11.9 11.1 - 14.9 % [facility] RDW SD 41.4 35.7 - 48.1 fL [facility] NRBC abs 0.00 0.00 - 0.01 K/cumm [facility] Blood 10/26/2024 11:3 7 AM CDT 10/26/2024 11:37 AM CDT Trudy Soria NP LAB BLOOD ORDERAB LES Final Result [facility] [address] [place] [address] * (ABNORMAL) Hemoglobin A1c (10/26/2024 11:37 AM CDT) [facility] Hgb A1C 5.8(H) 4.0 - 5.6 % Estimated Average Glucose 120 mg/dL [facility] Comment: The ADA recommends reporting an estimated Average Glucose (eAG) with all Hemoglobin A1c results using the equation derived from a study of 507 normal and diabetic adults. Minority populations were underrepresented and children were not included. (Diabetes Care 31:3876-9355, 2008). The eAG is not equivalent to a fasting glucose. Blood 10/26/2024 11:3 7 AM CDT 10/26/2024 11:37 AM CDT us Trudy Soria CHAIN MORTISER OPERATOR LAB BLOOD ORDERAB LES Final Result [facility] [address] [place] [address] * (ABNORMAL) Comprehensive metabolic panel (10/26/2024 11:37 AM CDT) Sodium 132(L) 135 - 145 mmol/L Potassium, pl 3.2(L) 3.3 - 4.9 mmol/L [facility] Chloride 91(L) 97 - 110 mmol/L [facility] CO2 26 22 - 32 mmol/L [facility] Anion gap 15 2 - 15 mmol/L [facility] BUN 11 6 - 25 mg/dL [facility] Creatinine 0.72 0.60 - 1.10 mg/dL [facility] Glucose 97 70 - 199 mg/dL [facility] Comment: Interpretive Data Fasting glucose >/= 126 [...] classification and Diagnosis of Diabetes Diabetes Care 202; 46: S19-S40. Current interpretive data was last revised 2022. Calcium 9.8 8.5 - 10.3 mg/dL [facility] Bilirubin, total 0.8 0.1 - 1.2 mg/dL [facility] Protein, pl 6.8 6.5 - 8.5 g/dL [facility] Albumin 3.8 3.5 - 5.0 g/dL [facility] Alk phos 70 40 - 130 Units/L [facility] ALT 16 7 - 45 Units/L [facility] AST 22 10 - 45 Units/L [facility] Blood 10/26/2024 11:3 7 AM CDT 10/26/2024 11:37 AM CDT us Trudy Soria CHAIN MORTISER OPERATOR LAB BLOOD ORDERAB LES Final Result [facility] [address] [place] [address] * ECG 12 lead (10/26/2024 11:20 AM CDT) 10/26/2024 11:2 0 AM CDT Narrative [facility] - 10/27/2024 8:30 AM CDT Vent Rate: 73 bpm RR Interval: 814 msec LA Interval: 179 msec QRS Duration: 102 msec QT Interval: 412 msec QTC Interval: 438 msec P-R-T Padroni: 51 - -3 - 29 degrees IMPRESSION: SINUS RHYTHM CANNOT EXCLUDE SEPTAL MYOCARDIAL INFARCTION , OF INDETERMINATE AGE BORDERLINE ECG Electronically Signed By: Bernard michelle us Trudy Soria CHAIN MORTISER OPERATOR ECG ORDERABLES F inal Result Performing Organization Address City/[facility] Co de Phone Number [facility] [employer] [facility] from Last 3 Months Insurance T MEDICARE [facility] AETNA MEDICARE GOLD Advance Directives For more information, please contact: [phone] * Full Code (Latest Code Status on File) Date Activated Date Inactivated Comments 11/15/2024 5:33 PM 11/16/2024 3:35 PM * Full Code Date Activated Date Inactivated Comments 02/28/2024 3:07 PM 03/01/2024 7:07 PM * Full Code Date Activated Date Inactivated Comments 02/01/2024 2:15 PM 02/02/2024 5:43 PM Care Teams Chemical Treatment Plant Technician Relationship Specialty Start Date End Date Constanza Parisi MD PCP - General Family Medicine 08/30/23 Samson Isaacs MD [address] [place] [address] Consulting Physician Orthopedic Surgery 02/02/24 Volodymyr Benz MD [address] [facility] [address] [place] [address] Consulting Physician Pulmonary Disease 03/01/24 Ponce Lopez MD [address] [facility] [address] [place] [address] Consulting Physician Otolaryngology 03/01/24
== END 2025-01-18 09:49 | disposition home or self-care (01) ==
PROVIDERS: PCP Family Medicine; Visit Provider Student in an Organized Health Care Education/Training Program
DX: Z13.820 Encounter for screening for osteoporosis (principal); N95.9 Unspecified menopausal and perimenopausal disorder
CPT/HCPCS: 77080

== ENCOUNTER 2025-05-23 15:27 | Outpatient (CLI) | payer MEDICARE, SELFPAY ==
--- OUTSIDE RECORDS SUMMARY | 2025-05-22 10:45 | XMS_ITS | Encounter Summary ---
Author Organization [facility] Healthcare Address [address] [place] [address] Care Team Providers Care Graduate Student Name Role Phone Constanza Parisi MD Primary Care Provider [phone] Samson Isaacs MD Unavailable [phone] Volodymyr Benz MD Unavailable [phone] Ponce Hansen MD Unavailable [phone] Encounter Details Date Type Department Care Team (Late st Contact Info) Description 05/22/2025 10:45 AM CDT Office Visit [facility] [address] [facility] [address] [place] [address] Volodymyr Benz MD [address] [facility] [address] [place] [address] PTE (pulmonary thromboembolism) (Primary Dx) Social History Tobacco Use Types Packs/Day Years Used Date Smoking Tobacco: Never Passive Smoke Exposure: Past Smokeless Tobacco: Never OASIS D0700: Social Isolation Answer Da te [...] on file Legal Sex Female 3:34 AM BOOM WORKER Gender Identity Female 08/02/2023 4:24 PM BOOM WORKER Sexual Orientation Straight 08/02/2023 4: 24 PM BOOM WORKER documented as of this encounter Progress Notes * Volodymyr Benz MD - 05/22/2025 10:45 AM CDT Images from the original note were not included. ASSESSMENT/PLAN: PTE Provoked VTE Doing better with eliquis Completed more than adequate treatment with eliquis for provoked VTE Recs: 1) Ok to stop eliquis - risk of recurrence, off anticoagulation, in the setting of provoked VTE discussed 2) Stay as active as able 3) Stay uptodate with health maintenance/vaccinations HISTORY OF PRESENT ILLNESS: Suzanne Ng is a 74 y.o. female is referred by [facility] for evaluation of lungs Background pulmonary history 1) Acute pulmonary embolism, circa January 2024 - provoked by surgery 2) Obesity 3) Epistaxis - Dr. 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 NO witnessed apnea. NO daytime fatigue or sleepiness Health maintenance: Uptodate with mammogram and colonoscopy Prior malignancy hx None Pertinent labs from [facility] and care everywhere reviewed. Available imaging from [facility] personally reviewed Radiology reports from care everywhere reviewed and imaging requested This visit included provision of longitudinal care for the pulmonary problem and medical concern above. Follow-up office visit is scheduled. Past Medical History: Diagnosis Date DVT (deep venous thrombosis) (HCC) 01/2024 HLD (hyperlipidemia) HTN (hypertension) Morbid obesity (HCC) Nephrolithiasis Primary osteoarthritis of right knee Pulmonary emboli (HCC) 01/2024 Social History Tobacco Use Smoking Status Never Passive exposure: Past Smokeless Tobacco Never Social History Tobacco Use Smoking status: Never Passive exposure: Past Smokeless tobacco: Never Substance and Sexual Activity Drug use: Never Sexual activity: Defer Alcohol Use: Not At Risk (11/15/2024) AUDIT-C Frequency of Alcohol Consumption: Never Average Number of Drinks: Patient does not drink Frequency of Binge Drinking: Never No family history on file. Allergies Allergen Reactions Adhesive Rash Sulfa Rash REVIEW OF SYSTEMS: See HPi PHYSICAL EXAM: There were no vitals taken for this visit. General: pleasant, no acute distress Eyes: No icterus or pallor. No erythema ENT: Mallampati 3; hearing ok. No nasal discharge or sinus tenderness Chest: Symmetric expansion bilaterally. Respiratory: Clear bilaterally Cardiovascular: Reviewed rate and rhythm Gastrointestinal: soft, non-surgical abdomen Ext: No edema or cyanosis or clubbing Musculoskeletal: No large swelling or tenderness Skin: no obvious rash or bruising Psychiatric: No agitation Neurologic: awake/alert, no focal motor deficits documented in this encounter Plan of Treatment Not on file documented as of this encounter Visit Diagnoses Diagnosis PTE (pulmonary thromboembolism)- Primary Chronic pulmonary embolism documented in this encounter Care Teams Graduate Student Relationship Specialty Start Date End Date Constanza Parisi MD PCP - General Family Medicine 08/30/23 Samson Isaacs MD [address] [place] [address] Consulting Physician Orthopedic Surgery 02/02/24 Volodymyr Benz MD [address] [place] [address] Consulting Physician Pulmonary Disease 03/01/24 Ponce Hansen MD [address] [place] [address] Consulting Physician Otolaryngology 03/01/24 documented as of this encounter
--- NOTE | ~2025-05-23 | MM_ITS ---
EXAMINATION: MM screening marissa BI w makenna HISTORY: Screening TECHNIQUE: Craniocaudal and mediolateral oblique 3-D tomosynthesis images were obtained and synthetic 2-D images were generated. CAD analysis was submitted and interpreted. COMPARISON: Comparison to multiple prior studies sequentially, with oldest reviewed study dated , 08/18/2019 BREAST PARENCHYMAL COMPOSITION: The breasts are almost entirely fatty. FINDINGS: There is no evidence of suspicious mass, calcification, or architectural distortion to suggest malignancy in either breast. IMPRESSION: 1. No mammographic evidence of malignancy. 2. Recommend routine screening mammography in one year. BI-RADS Category 1: Negative Reviewed, dictated and finalized at location B.
--- OUTSIDE RECORDS SUMMARY | 2025-05-23 19:47 | XMS_ITS | Clinical Summary ---
Author Organization [facility] [address] [place] [address] [address] [place] [address] Care Team Providers Care Oil Prospecting Observer Name Role Phone Constanza Parisi MD Primary Care Provider [phone] Samson Isaacs MD Unavailable Volodymyr Benz MD Unavailable [phone] Ponce Lopez MD Unavailable [phone] Allergies Active Allergy Reactions Criticality Noted Date Comments Adhesive Rash Medium 02/01/2024 Sulfa Rash Medium 10/12/2023 Medications loratadine (CLARITIN) 10 mg tabletIndicatio ns:Allergic Rhinitis Take 1 tablet (10 mg total) by mouth every morning Active atorvastatin (LIPITOR) 10 mg tabletIndicatio ns:hyperlipidem ia Take 0.5 tablets (5 mg total) by mouth every morning 08/21/2023 Active indapamide (LOZOL) 2.5 mg tabletIndicatio ns:Edema,hypert ension Take 1 tablet (2.5 mg total) by mouth every morning Active lisinopriL (PRINIVIL,ZESTR IL) 40 mg tabletIndicatio ns:hypertension Take 1 tablet (40 mg total) by mouth every morning Active montelukast (SINGULAIR) 10 mg tabletIndicatio ns:Seasonal Allergic Rhinitis Take 1 tablet (10 mg total) by mouth every other day 07/30/2023 Active cholecalciferol (Vitamin D3) 2000 unit capsuleIndicati [...] 1 tablet by mouth every morning Active cyanocobalamin (Vitamin B-12) 1,000 mcg tabletIndicatio [...] hours as needed for pain 50 tablet 11/16/2024 Active traMADoL (ULTRAM) 50 mg tabletIndicatio ns:Pain Take 1 tablet (50 mg total) by mouth every 6 (six) hours as needed for pain 30 tablet 11/30/2024 Active gabapentin (NEURONTIN) 100 mg capsuleIndicati ons:Postoperati ve Acute Pain Take 1 capsule (100 mg total) by mouth 3 (three) times a day for 20 days 60 capsule 12/28/2024 Active cyclobenzaprine (FLEXERIL) 10 mg tablet Take 1 tablet (10 mg total) by mouth 3 (three) times a day as needed for muscle spasms 30 tablet 12/28/2024 Active apixaban (ELIQUIS) 2.5 mg tablet Take 1 tablet (2.5 mg total) by mouth 2 (two) times a day 60 tablet 5 02/07/2025 Active Active Problems Problem Noted Date Diagnosed Date [...] Encounters Date Type Department Care Team Description 05/22/2025 10:45 AM CDT Office Visit [facility] [address] 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 Sexual Orientation Straight 08/02/2023 4: 24 PM BACKUP OPERATOR Obstetrics History Last Filed Vital Signs Vital [...] Screening 1950 Osteoporosis Screening-Bone Density Scan 1952 Hepatitis B Screening 1970 Well Visit 65+ 2017 Depression Screening 03/13/2025 03/13/2024 Influenza Vaccine (#1) 2025 05/12/2022, 2017 Fall Risk Assessment 11/16/2025 11/16/2024 DTaP/Tdap/Td Vaccine (3 - Td or Tdap) 11/08/2031 11/07/2021, 11/18/2011, 08/14/2005 Pneumococcal vaccine 65+ Completed 05/18/2019, 04/03 Zoster Vaccine Completed 07/29/2023, 10/31, 12/12/2013 Medical Devices Implanted Type Area Fig Caprifier Device Identifier Shelf Expiration Date Model / Serial / Lot [employer] [place] R High Viscosity Cement 40gm Bone Green [id number] - [id number] Implanted:Qty: 1 on 02/01/2024 by Samson Isaacs MD at [facility] Right: Knee [employer] 05/01/2028 [id number] / / [id number] [employer] [place] R High Viscosity Cement 40gm Bone Green [id number] - [id number] Implanted:Qty: 1 on 02/01/2024 by Samson Isaacs MD at [facility] Right: Knee [employer] 05/01/2028 [id number] / / [id number] [employer]hew[employer]/Or tho Journey Ii Cruciate Retain Knee Right 4 Component Femoral Oxinium [id number] - [id number] Implanted:Qty: 1 on 02/01/2024 by Samson Isaacs MD at [facility] Right: Knee [employer] rtho [id number] 10/08/2033 [id number] / / [id number] [employer]/Or tho Journey Bicruciate Stabilize Knee Right 3 Baseplate Tibial [id number] - [id number] Implanted:Qty: 1 on 02/01/2024 by Samson Isaacs MD at [facility] Right: Knee [employer] rtho [id number] 09/14/2033 [id number] / / [id number] [employer]/Or tho Insert Tibial Knee Fixed Rt Deep [facility] Journey Ii 18mm Size 3 4 Polyethylene [id number] - [id number] Implanted:Qty: 1 on 02/01/2024 by Samson Isaacs MD at [facility] Right: Knee [employer] r[employer]o [id number] 09/21/2027 [id number] / / [id number] [employer]/Or tho Maryann Ii [id number] Knee Oval Component Patellar Uhmwpe [id number] - [id number] Implanted:Qty: 1 on 02/01/2024 by Samson Isaacs MD at [facility] Right: Knee [employer] r[employer]o [id number] 10/06/2033 [id number] / / [id number] [employer] Journey Ii 67.5x62.7mm Bicruciate Stabilize Knee Left 5 Component [id number] - [id number] Implanted:Qty: 1 on 11/15/2024 by Samson Isaacs MD at [facility] Left: Knee [employer] r[employer]o [id number] 05/07/2034 [id number] / / [id number] [employer]/Or tho Insert Artic 3-4 13mm Knee Left Bicruciate Stab Constrain [id number] - [id number] Implanted:Qty: 1 on 11/15/2024 by Samson Isaacs MD at [facility] Left: Knee [employer] [id number] 03/12/2034 [id number] / / [id number] [employer]/Or tho Journey Knee Left 3 Baseplate Tibial [id number] - [id number] Implanted:Qty: 1 on 11/15/2024 by Samson Isaacs MD at [facility] Left: Knee [employer] r[employer]o [id number] 08/05/2034 [id number] / / [id number] [employer]/Or tho Maryann Ii [id number] Knee Oval Component [facility]ellar [facility] [id number] - [id number] Implanted:Qty: 1 on 11/15/2024 by Samson Isaacs MD at [facility] Left: Knee [employer] rtho [id number] 06/29/2034 [id number] / / [id number] Insurance [facility] MEDICARE [facility] MEDICARE GOLD Advance Directives For more information, please contact: [phone] * Full Code (Latest Code Status on File) Date Activated Date Inactivated Comments 11/15/2024 5:33 PM 11/16/2024 3:35 PM * Full Code Date Activated Date Inactivated Comments 02/28/2024 3:07 PM 03/01/2024 7:07 PM * Full Code Date Activated Date Inactivated Comments 02/01/2024 2:15 PM 02/02/2024 5:43 PM Care Teams Oil Prospecting Observer Relationship Specialty Start Date End Date Constanza Parisi MD PCP - General Family Medicine 08/30/23 Samson Isaacs MD [address] [place] [address] Consulting Physician Orthopedic Surgery 02/02/24 Volodymyr Benz MD [address] [place] [address] Consulting Physician Pulmonary Disease 03/01/24 Ponce Lopez MD [address] [place] [address] Consulting Physician Otolaryngology 03/01/24
== END 2025-05-23 15:28 | disposition home or self-care (01) ==
LOC: ANHFOHIMG 15:33
PROVIDERS: PCP Family Medicine; Visit Provider Student in an Organized Health Care Education/Training Program
DX: Z12.31 Encounter for screening mammogram for malignant neoplasm of breast (principal)
CPT/HCPCS: 77063; 77067